=== PATIENT | male | born 1955 | race Caucasian/White ===

== ENCOUNTER → 2016-11-25 | Outpatient (CLI) | payer MEDICARE ==
[2016-11-25 11:55] LABS: ABSOLUTE BASOPHILS # (AUTO) 0.1 10^3/uL (0.0-0.2); ABSOLUTE EOSINOPHILS # (AUTO) 0.2 10^3/uL (0.0-0.6); ABSOLUTE LYMPHOCYTES (AUTO) 1.8 10^3/uL (0.5-4.7); ABSOLUTE MONOCYTES (AUTO) 0.6 10^3/uL (0.1-1.4); BASOPHILS % (AUTO) 0.9 % (0-2); HEMOGLOBIN 14.5 g/dL (13.5-17.0); HGB HCT DIFFERENCE 1.5; LYMPHOCYTES % (AUTO) 20.8 % (13-45); MEAN CORPUSCULAR HEMOGLOBIN 32.9 pg (27.0-33.4); MEAN CORPUSCULAR HGB CONC 34.5 g/dL (32.0-36.0); MEAN CORPUSCULAR VOLUME 96 fl (80-97); MONOCYTES % (AUTO) 7.1 % (3-13); RED CELL DISTRIBUTION WIDTH 12.9 % (11.5-14.0); SEGMENTED NEUTROPHILS % (AUTO) 69.2 % (42-78); WHITE BLOOD COUNT 8.7 10^3/uL (4.0-10.5)
[2016-11-25 12:10] LABS: ALANINE AMINOTRANSFERASE 37 U/L (21-72); ALBUMIN 4.1 g/dL (3.5-5.0); ALKALINE PHOSPHATASE 103 U/L (38-126); ANION GAP 11 (5-19); ASPARTATE AMINO TRANSFERASE 28 U/L (17-59); BILIRUBIN,DIRECT 0.3 mg/dL (0.0-0.4); BILIRUBIN,TOTAL 0.6 mg/dL (0.2-1.3); BLOOD UREA NITROGEN 41 mg/dL (7-20); C-REACTIVE PROTEIN 17.7 mg/L (<10.0); CALCIUM 9.5 mg/dL (8.4-10.2); CARBON DIOXIDE 32 mmol/L (22-30); CHLORIDE 98 mmol/L (98-107); CREATININE RESULT 1.16 mg/dL (0.52-1.25); GLUCOSE 111 mg/dL (75-110); POTASSIUM 4.6 mmol/L (3.6-5.0); SODIUM 141.3 mmol/L (137-145); TOTAL PROTEIN 6.9 g/dL (6.3-8.2)
[2016-11-25 12:38] LABS: ERYTHROCYTE SEDIMENTATION RATE 46 mm/hr (0-20)
--- NOTE | 2016-11-25 15:20 | RADIOLOGY REPORT (SQ) ---
EXAM DESCRIPTION: FOOT RIGHT COMPLETE COMPLETED DATE/TIME: 11/25/2016 11:17 am REASON FOR STUDY: NON PRESSURE ULCER RT FOOT FAT LAYER EXPOSED L97.512 NON-PRS CHRONIC ULCER OTH DC T RIGHT FOOT W FAT LAYER L97.519 NON-PRS CHRONIC ULCER OTH PRT RIGHT FOOT W UNSP STEVEN COMPARISON: None. NUMBER OF VIEWS: Three views. TECHNIQUE: AP, lateral and oblique radiographic images acquired of the right foot. LIMITATIONS: None. FINDINGS: MINERALIZATION: Normal. BONES: No fracture or dislocation dorsal and plantar calcaneal spurs are present. There is no eviden ce of osteomyelitis. JOINTS: No effusions. SOFT TISSUES: Very thin linear radiopaque foreign bodies are seen in the region of base of the 2nd me tatarsal hand in the region of the 3rd proximal phalanx. OTHER: No other significant finding. IMPRESSION: 1. Calcaneal spurs. 2. No evidence of osteomyelitis. 3. Radiopaque foreign bodies. TECHNICAL DOCUMENTATION: JOB ID: [id number] [employer]- All Rights Reserved
== END ==
LOC: OD 10:36
PROVIDERS: ATTEND Nurse Practitioner Family
DX: L97.512 Non-pressure chronic ulcer of other part of right foot with fat layer exposed (principal)
CPT/HCPCS: 36415; 80053; 83036; 85025; 85652; 86140

== ENCOUNTER 2017-01-05 08:19 | Day surgery (SDC) | payer MEDICARE ==
[~2017-01-05 08:19] MED LIST: PROPOFOL INJ 200 MG/20 ML VIAL IV ONE
[2017-01-05 10:22] VITALS: BP 100/61
--- NOTE | 2017-01-05 12:37 | Operative Report ---
Operative Report DATE OF SURGERY: 01/05/17 Operative Report: The risks, benefits and alternatives of the procedure including risks of bleeding, perforation requiring surgery are explained to the patient detail and informed consent was obtained. Patient was taken back to the endoscopy suite and placed in the left, lateral decubital position. Timeout was called. Propofol medications administered. A rectal examination is done which did not reveal any masses, tears or fissures. An Olympus videoscope is introduced into the patient's rectum. Following insufflation, the scope was then carefully advanced all the way to the cecum. The cecum was identified by the usual anatomical landmarks including the ileocecal valve as well as the appendiceal office. Photodocumentation is obtained. Prep is good. The scope was then sequentially pulled back via the rest segments of the colon including the ascending colon, hepatic flexure, transverse colon, splenic flexure, descending colon finally to the rectosigmoid portions of the colon. Retroflexion maneuvers performed. Prep is good. PREOPERATIVE DIAGNOSIS: Colorectal cancer screening POSTOPERATIVE DIAGNOSIS: Mild punctate erythema that is noted especially in the right side of the colon status post biopsy rule out colitis. Internal hemorrhoids OPERATION: Colonoscopy with biopsy SURGEON: LEOBARDO YOUNG ANESTHESIA: LMAC TISSUE REMOVED OR ALTERED: As noted above. COMPLICATIONS: None. ESTIMATED BLOOD LOSS: None. INTRAOPERATIVE FINDINGS: As described above. PROCEDURE: Patient tolerated the procedure well. No immediate postprocedure complications are noted. Patient discharged in good condition. Discharge date 01/05/2017. Discharge diet: Regular. Discharge activity: Regular. 2-3 week follow-up to discuss findings. Patient is instructed to call the office or proceed to the emergency room should there be any further problems or questions. We will await pathology. If negative can have 10 year colon surveillance.
== END 2017-01-05 10:10 | disposition home or self-care (01) ==
LOC: END 08:19
PROVIDERS: ATTEND Internal Medicine Gastroenterology
PROC: 0DBF8ZX Excision of Right Large Intestine, Via Natural or Artificial Opening Endoscopic, Diagnostic (ICD-10-PCS; principal; 2017-01-05 10:30)
DX: Z12.11 Encounter for screening for malignant neoplasm of colon (principal); K52.9 Noninfective gastroenteritis and colitis, unspecified; K64.8 Other hemorrhoids; G62.9 Polyneuropathy, unspecified; I48.91 Unspecified atrial fibrillation; I11.0 Hypertensive heart disease with heart failure; I50.9 Heart failure, unspecified; E11.9 Type 2 diabetes mellitus without complications; Z79.899 Other long term (current) drug therapy; Z79.01 Long term (current) use of anticoagulants; Z98.84 Bariatric surgery status; L97.509 Non-pressure chronic ulcer of other part of unspecified foot with unspecified severity; Z86.14 Personal history of Methicillin resistant Staphylococcus aureus infection
CPT/HCPCS: 45380; 82962; 88305 ×2; J2704; 810

== ENCOUNTER 2017-03-02 18:32 | Emergency (ER) | payer MEDICARE ==
[2017-03-02 18:49] VITALS: BP 118/75
[2017-03-02] MEDS ORDERED: ACETAMINOPHEN 325 MG TABLET PO ONE (20:15)
[2017-03-02] MEDS ORDERED: BUPIVACAINE HCL 0.5 % INJ/PF 30 ML SDV INJ ONE (20:16)
--- NOTE | 2017-03-02 20:17 | ER Document Report ---
HPI - HPI Patient complains to provider of: Finger laceration Onset: Just prior to arrival Onset/Duration: Sudden Quality of pain: Sharp Pain Level: 3 Context: Patient was using pruning court and accidentally snipped the tip of his right fifth finger. Patient with laceration to fingertip. Patient reports that tetanus immunization is currently up-to-date Associated Symptoms: Other - Finger laceration Exacerbated by: Movement Relieved by: Denies Similar symptoms previously: No Recently seen / treated by doctor: No - ROS ROS below otherwise negative: Yes Systems Reviewed and Negative: Yes All other systems reviewed and negative - MUSCULOSKELETAL Musculoskeletal: REPORTS: Extremity pain - DERM Skin Problems: Laceration Past Medical History - General Information source: Patient - Social History Smoking Status: Never Smoker Frequency of alcohol use: None Drug Abuse: None Family History: Reviewed & Not Pertinent Patient has suicidal ideation: No Patient has homicidal ideation: No - Past Medical History Cardiac Medical History: Reports: Hx Atrial Fibrillation, Hx Congestive Heart Failure, Hx Hypercholesterolemia, Hx Hypertension Denies: Hx Coronary Artery Disease, Hx Heart Attack Pulmonary Medical History: Denies: Hx Asthma, Hx Bronchitis, Hx COPD, Hx Pneumonia Neurological Medical History: Denies: Hx Cerebrovascular Accident, Hx Seizures Endocrine Medical History: Reports: Hx Diabetes Mellitus Type 2 Renal/ Medical History: Denies: Hx Peritoneal Dialysis Musculoskeltal Medical History: Reports Hx Arthritis Past Surgical History: Reports: Hx Appendectomy, Hx Cholecystectomy, Hx Tonsillectomy - Immunizations Hx Diphtheria, Pertussis, Tetanus Vaccination: Yes Vertical Provider Document - CONSTITUTIONAL Agree With Documented VS: Yes Exam Limitations: No Limitations General Appearance: WD/WN, No Apparent Distress - INFECTION CONTROL TRAVEL OUTSIDE OF THE [place] IN LAST 30 DAYS: No - HEENT HEENT: Atraumatic, Normocephalic - NECK Neck: Normal Inspection - RESPIRATORY Respiratory: No Respiratory Distress O2 Sat by Pulse Oximetry: 96 - CARDIOVASCULAR Pulses: Normal: Radial - MUSCULOSKELETAL/EXTREMETIES Musculoskeletal/Extremeties: MAEW, Tender - Right fifth finger laceration to the distal tip, No Edema - NEURO Level of Consciousness: Awake, Alert, Appropriate Motor/Sensory: No Motor Deficit - DERM Integumentary: Warm, Dry, Laceration - Right fifth finger laceration to distal tip Course - Vital Signs Vital signs: Temp Pulse Resp BP Pulse Ox 98.6 F 80 16 118/75 96 03/02/17 18:49 03/02/17 18:49 03/02/17 18:49 03/02/17 18:49 03/02/17 18:49 - Diagnostic Test Radiology reviewed: Pending, Image reviewed Procedures - Laceration/Wound Repair Right 5th digit Wound length (cm): 2 Wound's Depth, Shape: Flap Anesthetic type: 0.5% Bupivacaine Wound explored: No foreign body removed Wound Repaired With: Sutures Suture Size/Type: 5:0, Nylon Number of Sutures: 6 Layer Closure?: No Post-procedure wound care: Sterile dressing applied Post-procedure NV exam normal: Yes Complications: No Hands front picture: 1 - 2 cm lac Discharge - Discharge Clinical Impression: Finger laceration Qualifiers: Encounter type: initial encounter Finger: little finger Damage to nail status: without damage Foreign body presence: without foreign body Laterality: right Qualified Code(s): S61.216A - Laceration without foreign body of right little finger without damage to nail, initial encounter Condition: Stable Disposition: HOME, SELF-CARE Instructions: Laceration Care ([facility]), Prophylactic Antibiotic ([facility]), Oral Narcotic Medication ([facility]) Additional Instructions: Return immediately for any new or worsening symptoms Followup with your primary care provider, call tomorrow to make a followup appointment Suture removal in 8 days Prescriptions: Cephalexin Monohydrate [Keflex 500 mg Capsule] 500 mg PO Q6H 5 Days capsule Hydrocodone/Acetaminophen [[place] 5-325 Tablet] 1 each PO Q4 PRN #8 tablet PRN Reason:
[2017-03-02] MEDS ORDERED: CEPHALEXIN 500 MG CAPSULE PO ONE (21:15)
[2017-03-02] MEDS ORDERED: HYDROCODONE/ACETAMINOPHEN 5-325 MG 6 TAB/DSPK PO PRN (21:15)
--- NOTE | 2017-03-02 21:19 | RADIOLOGY REPORT (SQ) ---
EXAM DESCRIPTION: FINGER RIGHT COMPLETED DATE/TIME: 03/02/2017 8:41 pm REASON FOR STUDY: finger lac COMPARISON: None. NUMBER OF VIEWS: Three views. TECHNIQUE: AP, lateral, and oblique images acquired of the right fifth finger. LIMITATIONS: None. FINDINGS: MINERALIZATION: Normal. BONES: No acute fracture or dislocation. No worrisome bone lesions. SOFT TISSUES: No radiopaque foreign body is identified. There is apparent soft tissue injury involvi ng the distal end of the 5th digit. OTHER: No other significant finding. IMPRESSION: No acute fracture dislocation. There is apparent soft tissue injury involving the dista l end of the 5th digit. Other findings as noted above COMMENT: SITE OF TRAUMA/COMPLAINT MARKED/STAMP COMPLETED: Yes TECHNICAL DOCUMENTATION: JOB ID: [id number] [employer]- All Rights Reserved
== END 2017-03-02 21:40 | disposition home or self-care (01) ==
LOC: ER 18:32
PROC: 0HQFXZZ Repair Right Hand Skin, External Approach (ICD-10-PCS; principal; 2017-03-02)
DX: S61.212A Laceration without foreign body of right middle finger without damage to nail, initial encounter (principal); W27.1XXA Contact with garden tool, initial encounter; I48.91 Unspecified atrial fibrillation; I50.9 Heart failure, unspecified; E78.00 Pure hypercholesterolemia, unspecified; I11.0 Hypertensive heart disease with heart failure; E11.9 Type 2 diabetes mellitus without complications; Z90.49 Acquired absence of other specified parts of digestive tract
CPT/HCPCS: 99283; 73140; 12001; A9270 ×3

== ENCOUNTER → 2017-05-04 | Outpatient (CLI) | payer MEDICARE ==
--- NOTE | 2017-05-04 12:25 | RADIOLOGY REPORT (SQ) ---
EXAM DESCRIPTION: U/S ABD AORTIC SCREENING COMPLETED DATE/TIME: 05/04/2017 9:57 am REASON FOR STUDY: SCRN FOR CARDIOVASCULAR DISORDERS(Z13.6 PROMINENT ABD AORTIC PULSE (R09.89) R09.89 OTH SYMPTOMS AND SIGNS INVOLVING THE CIRC AND RESP SY Z13.6 ENCOUNTER FOR SCREENING FOR CARDIOVASC ULAR DISORDERS COMPARISON: None. TECHNIQUE: Static and dynamic grayscale images acquired of the aorta and stored on PACs. Selected co steve Doppler and spectral images recorded. LIMITATIONS: None. FINDINGS: AORTIC CALIBER MAXIMAL PROXIMAL: 1.9 cm. MID: 1.7 cm. DISTAL: 1.9 cm. ILIAC DIAMETER RIGHT: 2.2 cm. LEFT: 1.6 cm. OTHER: No other significant finding. IMPRESSION: NO ABDOMINAL AORTIC ANEURYSM. COMMENT: Aorta screening examinations categories: Negative - less than 3 cm. TECHNICAL DOCUMENTATION: JOB ID: [id number] [employer]- All Rights Reserved
== END ==
LOC: RAD 08:51
PROVIDERS: ATTEND Family Medicine
DX: Z13.6 Encounter for screening for cardiovascular disorders (principal); Z87.891 Personal history of nicotine dependence
CPT/HCPCS: 76706

== ENCOUNTER 2017-08-03 14:31 | Emergency (ER) | payer MEDICARE ==
[2017-08-03] MEDS ORDERED: NORMAL SALINE 1000 ML 1,000 ML IV ONE (15:54)
--- NOTE | 2017-08-03 16:02 | ER Document Report ---
ED Medical Screen (RME) - General Chief Complaint: Foot Pain Stated Complaint: FOOT PAIN Time Seen by Provider: 08/03/17 15:46 Notes: RAPID MEDICAL EVALUATION DISCLOSURE I have seen this patient as part of a Rapid Medical Evaluation and, if applicable, placed any initially appropriate orders. The patient will be seen and fully evaluated, including a full history and physical exam, by a provider ( in Main ED or Fast Track) when a room becomes available. 61-year-old male here with complaints of possible right foot infection. He states that he has a diabetic ulcer to the distal part of his foot and that over the past week, he has had increased redness as well as yellow drainage. He has seen his surgeon about this and patient reports "this [place] does not believe in antibiotics" so the patient has been using a cream on the area but he does not know the name of the cream. No fevers but he has been having chills. Patient reports his baseline blood pressure is in the 110s-130s and that it is not usually this low (94 systolic) unless he is feeling bad. TRAVEL OUTSIDE OF THE [place] IN LAST 30 DAYS: No - Related Data Allergies/Adverse Reactions: No Known Allergies Allergy (Verified 03/02/17 18:33) Home Medications: multivitamin. docusat sodium. bumetanide. zarelto. gabapentin. fish oi. lininopril. amiodarone. liothyronine. omeprazole. alprazolam. carvedilol Past Medical History - Social History Frequency of alcohol use: None Drug Abuse: None - Past Medical History Cardiac Medical History: Reports: Hx Atrial Fibrillation, Hx Congestive Heart Failure, Hx Hypercholesterolemia, Hx Hypertension Denies: Hx Coronary Artery Disease, Hx Heart Attack Pulmonary Medical History: Denies: Hx Asthma, Hx Bronchitis, Hx COPD, Hx Pneumonia Neurological Medical History: Denies: Hx Cerebrovascular Accident, Hx Seizures Endocrine Medical History: Reports: Hx Diabetes Mellitus Type 2 Renal/ Medical History: Denies: Hx Peritoneal Dialysis Musculoskeltal Medical History: Reports Hx Arthritis Past Surgical History: Reports: Hx Appendectomy, Hx Cholecystectomy, Hx Tonsillectomy - Immunizations Hx Diphtheria, Pertussis, Tetanus Vaccination: Yes Physical Exam - Vital signs Vitals: Temp Pulse Resp BP Pulse Ox 98.5 F 67 18 94/65 L 94 08/03/17 14:47 08/03/17 14:47 08/03/17 14:47 08/03/17 14:47 08/03/17 14:47 Course - Vital Signs Vital signs: Temp Pulse Resp BP Pulse Ox 98.5 F 67 18 94/65 L 94 08/03/17 14:47 08/03/17 14:47 08/03/17 14:47 08/03/17 14:47 08/03/17 14:47 Doctor's Discharge - Discharge Referrals: GABRIELLE CAMARA MD [Primary Care Provider] - Follow up as needed
[2017-08-03 16:25] LABS: ABSOLUTE BASOPHILS # (AUTO) 0.1 10^3/uL (0.0-0.2); ABSOLUTE EOSINOPHILS # (AUTO) 0.1 10^3/uL (0.0-0.6); ABSOLUTE LYMPHOCYTES (AUTO) 1.8 10^3/uL (0.5-4.7); ABSOLUTE MONOCYTES (AUTO) 0.6 10^3/uL (0.1-1.4); ABSOLUTE NEUT (AUTO) 6.4 10^3/uL (1.7-8.2); BASOPHILS % (AUTO) 0.8 % (0-2); EOSINOPHILS % (AUTO) 1.2 % (0-6); HEMATOCRIT 39.3 % (37.9-51.0); HEMOGLOBIN 13.6 g/dL (13.5-17.0); LYMPHOCYTES % (AUTO) 19.8 % (13-45); MEAN CORPUSCULAR HEMOGLOBIN 32.9 pg (27.0-33.4); MEAN CORPUSCULAR HGB CONC 34.6 g/dL (32.0-36.0); MEAN CORPUSCULAR VOLUME 95 fl (80-97); MONOCYTES % (AUTO) 6.9 % (3-13); PLATELET COUNT 297 10^3/uL (150-450); RED BLOOD COUNT 4.13 10^6/uL (4.35-5.55); RED CELL DISTRIBUTION WIDTH 12.7 % (11.5-14.0); SEGMENTED NEUTROPHILS % (AUTO) 71.3 % (42-78); TOTAL CELLS COUNTED % (AUTO) 100 %
[2017-08-03 16:40] LABS: ANION GAP 13 (5-19); BLOOD UREA NITROGEN 32 mg/dL (7-20); CALCIUM 9.4 mg/dL (8.4-10.2); CARBON DIOXIDE 32 mmol/L (22-30); CHLORIDE 98 mmol/L (98-107); GLUCOSE 87 mg/dL (75-110); POTASSIUM 4.1 mmol/L (3.6-5.0); SODIUM 143.3 mmol/L (137-145)
--- NOTE | 2017-08-03 16:44 | RADIOLOGY REPORT (SQ) ---
EXAM DESCRIPTION: FOOT RIGHT 2 VIEWS COMPLETED DATE/TIME: 08/03/2017 4:33 pm REASON FOR STUDY: R toe ulcer; eval gas or osteomyelitis COMPARISON: 11/25/2016 NUMBER OF VIEWS: Three views. TECHNIQUE: AP, lateral and oblique radiographic images acquired of the right foot. LIMITATIONS: None. FINDINGS: Unchanged linear foreign bodies level of 3rd phalanx and base of 1st metatarsal. Skin ulc er plantar aspect 1st metatarsophalangeal joint. No deep subcutaneous gas. There is demineralizatio n of the base of the proximal 1st phalanx with sharp margins, presumably from previous osteotomy. IMPRESSION: Postsurgical changes base of proximal 1st phalanx. Chronic metal linear foreign bodies. TECHNICAL DOCUMENTATION: JOB ID: [id number] [employer]- All Rights Reserved Reading location - IP/workstation name: [email or web address]
[2017-08-03 17:00] LABS: ERYTHROCYTE SEDIMENTATION RATE 49 mm/hr (0-20)
[2017-08-03] MEDS ORDERED: CLINDAMYCIN 900 MG/D5W RTU 50 ML IV ONE (17:10)
[2017-08-03] MEDS ORDERED: FENTANYL CITRATE INJ/PF 100 MCG/2 ML AMPUL IV ONE (18:10)
--- NOTE | 2017-08-03 19:44 | ER Document Report ---
ED General - General Chief Complaint: Foot Pain Stated Complaint: FOOT PAIN Time Seen by Provider: 08/03/17 15:46 Information source: Patient Notes: 61-year-old male with a history of diabetes, atrial fibrillation presents with complaint of right great toe pain that has been ongoing since surgery 2 weeks prior to arrival. Patient states that he underwent "bone removal surgery" with Dr. Fay. Patient is concerned with increasing pain, erythema and drainage from the wound. He states that he did follow up with the surgeon who states that the area looked well and did not recommend antibiotics at that time. Patient denies fever, chills, chest pain, shortness of breath. He does undergo care with the wound center and has an appointment tomorrow. She denies history of osteomyelitis, MRSA. TRAVEL OUTSIDE OF THE [place] IN LAST 30 DAYS: No - HPI Onset: Other Onset/Duration: Gradual, Constant Quality of pain: Burning, Throbbing Severity: Moderate Associated symptoms: denies: Chest pain, Fever, Leg swelling, Shortness of breath Exacerbated by: Movement, Walking Relieved by: Denies Similar symptoms previously: Yes Recently seen / treated by doctor: Yes - Related Data Allergies/Adverse Reactions: No Known Allergies Allergy (Verified 03/02/17 18:33) Home Medications: multivitamin. docusat sodium. bumetanide. zarelto. gabapentin. fish oi. lininopril. amiodarone. liothyronine. omeprazole. alprazolam. carvedilol Past Medical History - General Information source: Patient - Social History Smoking Status: Never Smoker Frequency of alcohol use: None Drug Abuse: None Lives with: Alone Family History: Reviewed & Not Pertinent Patient has suicidal ideation: No Patient has homicidal ideation: No - Past Medical History Cardiac Medical History: Reports: Hx Atrial Fibrillation, Hx Congestive Heart Failure, Hx Hypercholesterolemia, Hx Hypertension Denies: Hx Coronary Artery Disease, Hx Heart Attack Pulmonary Medical History: Denies: Hx Asthma, Hx Bronchitis, Hx COPD, Hx Pneumonia Neurological Medical History: Denies: Hx Cerebrovascular Accident, Hx Seizures Endocrine Medical History: Reports: Hx Diabetes Mellitus Type 2 Renal/ Medical History: Denies: Hx Peritoneal Dialysis Musculoskeltal Medical History: Reports Hx Arthritis Past Surgical History: Reports: Hx Abdominal Surgery - gastric sleeve, Hx Appendectomy, Hx Cholecystectomy, Hx Orthopedic Surgery - right toe surgery, Hx Tonsillectomy - Immunizations Hx Diphtheria, Pertussis, Tetanus Vaccination: Yes Review of Systems - Review of Systems Notes: Patient denies fever, chills, nausea, vomiting, headache, ear pain, sore throat , cough, chest pain, shortness of breath, abdominal pain, back pain, dysuria, hematuria, rash, SI/HI. Physical Exam - Vital signs Vitals: Temp Pulse Resp BP Pulse Ox 98.5 F 67 18 94/65 L 94 08/03/17 14:47 08/03/17 14:47 08/03/17 14:47 08/03/17 14:47 08/03/17 14:47 - Notes Notes: PHYSICAL EXAMINATION: GENERAL: Well-appearing, well-nourished and in no acute distress. HEAD: Atraumatic, normocephalic. EYES: Pupils equal round and reactive to light, extraocular movements intact, sclera anicteric, conjunctiva are normal. ENT: Nares patent, oropharynx clear without exudates. Moist mucous membranes. NECK: Normal range of motion, supple without lymphadenopathy LUNGS: Breath sounds clear to auscultation bilaterally and equal. No wheezes rales or rhonchi. HEART: Regular rate and rhythm without murmurs ABDOMEN: Soft, nontender, nondistended abdomen. No guarding, no rebound. No masses appreciated. Musculoskeletal: Right great toe erythematous, nickel-sized ulceration on the dorsal aspect with good granulation tissue, no purulent drainage or foul odor. Left great toe absent. NEUROLOGICAL: Cranial nerves grossly intact. Normal speech, normal gait. Normal sensory, motor exams PSYCH: Normal mood, normal affect. SKIN: Warm, Dry, normal turgor, no rashes or lesions noted. Course - Re-evaluation Re-evalutation: Laboratory 08/03/17 08/03/17 16:02 16:02 WBC 9.0 RBC 4.13 L Hgb 13.6 Hct 39.3 MCV 95 MCH 32.9 MCHC 34.6 RDW 12.7 Plt Count 297 Seg Neutrophils % 71.3 Lymphocytes % 19.8 Monocytes % 6.9 Eosinophils % 1.2 Basophils % 0.8 Absolute Neutrophils 6.4 Absolute Lymphocytes 1.8 Absolute Monocytes 0.6 Absolute Eosinophils 0.1 Absolute Basophils 0.1 ESR 49 H Sodium 143.3 Potassium 4.1 Chloride 98 Carbon Dioxide 32 H Anion Gap 13 BUN 32 H Creatinine 1.31 H Est GFR ( Amer) > 60 Est GFR (Non-Af Amer) 56 L Glucose 87 Calcium 9.4 08/04/17 00:02 61-year-old male with a history of diabetes present 2 weeks status post right 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 Patient reports worsening of pain over the last few days. He is concerned because the toe appears more red. Upon arrival vitals were reviewed. Patient is afebrile, mildly hypotensive which he reports is his baseline. Exam is significant for erythema of the toe without extension into the foot or leg. Patient does have a nickel-sized ulceration on the dorsal aspect of his right great toe that has granulation tissue, no purulent drainage or foul odor. Tray was obtained and showed no evidence of osteomyelitis. CBC is without leukocytosis, CMP does show an elevated BUN/creatinine which appears to be the patient's baseline. Patient also with a elevated ESR which also appears to be his baseline. He did receive fluids for this. Patient also received clindamycin and morphine. On reevaluation patient pain has improved. He does have an upcoming appointment with wound care tomorrow. Patient was discharged home with prescription for clindamycin. Patient provided the opportunity to ask questions, and express concerns. Discharge instructions discussed. Patient is agreeable with discharge home. Return indications explained and discussed with the patient who displays understanding. Patient encouraged to return to the emergency department immediately with any concerns. - Vital Signs Vital signs: Temp Pulse Resp BP Pulse Ox 98.5 F 67 15 106/60 94 08/03/17 20:01 08/03/17 14:47 08/03/17 20:01 08/03/17 20:01 08/03/17 20:01 - Laboratory Result Diagrams: 08/03/17 16:02 08/03/17 16:02 Laboratory results interpreted by me: 08/03/17 08/03/17 16:02 16:02 RBC 4.13 L ESR 49 H Carbon Dioxide 32 H BUN 32 H Creatinine 1.31 H Est GFR (Non-Af Amer) 56 L - Diagnostic Test Radiology reviewed: Image reviewed, Reports reviewed Discharge - Discharge Clinical Impression: Pain of right great toe Condition: Good Disposition: HOME, SELF-CARE Instructions: Wound Infection ([facility]) Additional Instructions: Please follow-up with the wound care clinic as already scheduled tomorrow. Please follow-up with the podiatric surgeon as scheduled. Follow up with your physician tomorrow for further care or return to the ED IMMEDIATELY if symptoms worsen or new concerns occur. If you cannot afford to follow up with your primary care physician a list of low cost clinics have been provided at the end of your discharge papers as well. Prescriptions: Clindamycin HCl 600 mg PO Q6H 10 Days #80 capsule Hydrocodone/Acetaminophen [[place] 5-325 mg Tablet] 1 tab PO Q6H #10 tablet Referrals: GABRIELLE CAMARA MD [Primary Care Provider] - Follow up as needed MEG MORALES DPM [NO LOCAL MD] - Follow up as needed
[2017-08-03 20:09] VITALS: BP 106/60
== END 2017-08-03 20:25 | disposition home or self-care (01) ==
LOC: ER 14:31
DX: M79.674 Pain in right toe(s) (principal); E11.9 Type 2 diabetes mellitus without complications; I10 Essential (primary) hypertension; I48.91 Unspecified atrial fibrillation; Z79.01 Long term (current) use of anticoagulants; Z98.890 Other specified postprocedural states; Z79.899 Other long term (current) drug therapy
CPT/HCPCS: 99283; 96361; 96375; 96365; 36415; 87040; 85025; 85652; 80048; 73620; J3010; J7030

== ENCOUNTER → 2017-08-25 | Outpatient (CLI) | payer MEDICARE ==
--- NOTE | 2017-08-25 13:03 | XCELERA REPORT ---
[address] [address] Lower Extremity Arterial Evaluation Name: VITALY HENNESSY Age: 61 yrs Gender: Male : 1955 Patient Status: Outpatient Patient Location: Study Date: 08/25/2017 10:08 AM Procedure: A color flow and duplex scan of the lower extremity arteries was performed bilaterally with velocity and waveform anaylsis. Ankle brachial indicies performed. 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 0 % stenosis . Ankle Brachial index is 1.2. Left Side Arterial Evaluation Normal velocity and triphasic waveforms noted from the Common Femoral artery to the infrageniculate vessels. 0 % stenosis . Ankle Brachial index is 1.6. Interpretation Summary No hemodynamically significant lesions in the bilateral lower extremities, on duplex imaging, at rest. : SAMIR MICHAEL > Gerardo Leong
== END ==
LOC: SP 09:54
PROVIDERS: ATTEND Preventive Medicine Undersea and Hyperbaric Medicine
DX: M79.605 Pain in left leg (principal)
CPT/HCPCS: 93922; 93925

== ENCOUNTER → 2017-09-17 | Outpatient (CLI) | payer MEDICARE ==
--- NOTE | 2017-09-17 12:03 | RADIOLOGY REPORT (SQ) ---
EXAM DESCRIPTION: FOOT RIGHT COMPLETE COMPLETED DATE/TIME: 09/17/2017 11:51 am REASON FOR STUDY: NON-PRS CHRONIC ULCER OTH PRT RIGHT FOOT W NECROSIS OF BONE L97.514 NON-PRS CHRON IC ULCER OTH PRT RIGHT FOOT W NECROSIS COMPARISON: Right foot films 11/25/2016, 08/03/2017 NUMBER OF VIEWS: Three views. TECHNIQUE: AP, lateral and oblique radiographic images acquired of the right foot. LIMITATIONS: None. FINDINGS: MINERALIZATION: Overall normal bone density BONES: Patient is post osteotomy at the base of the right great toe proximal phalanx. There is perio steal new bone along the base of the great toe proximal phalanx. No aggressive bony demineralization of the great toe 1st metatarsal head. JOINTS: No significant joint space widening at the 1st metatarsophalangeal joint SOFT TISSUES: There is diffuse forefoot soft tissue swelling around the 1st metatarsophalangeal joint . Radiopaque linear foreign bodies are seen in the plantar soft tissues, question selling needles along the base 2nd metatarsal and 3rd toe proximal phalanx regions. These are unchanged. OTHER: No other significant finding. IMPRESSION: Soft tissue swelling at the 1st metatarsophalangeal joint region. Periosteal new bone at the base of the great toe proximal phalanx from healing osteotomy. Metallic foreign bodies in the plantar soft tissues likely fragments of sewing needles TECHNICAL DOCUMENTATION: JOB ID: [id number] [employer]- All Rights Reserved Reading location - IP/workstation name: [email or web address]
== END ==
LOC: RAD 11:32
PROVIDERS: ATTEND Preventive Medicine Undersea and Hyperbaric Medicine
DX: E11.621 Type 2 diabetes mellitus with foot ulcer (principal); L97.514 Non-pressure chronic ulcer of other part of right foot with necrosis of bone

== ENCOUNTER → 2017-10-15 | Outpatient (CLI) | payer MEDICARE ==
--- NOTE | 2017-10-15 10:44 | RADIOLOGY REPORT (SQ) ---
EXAM DESCRIPTION: FOOT RIGHT COMPLETE COMPLETED DATE/TIME: 10/15/2017 10:12 am REASON FOR STUDY: NON-PRS CHRONIC ULCER OTH PRT RIGHT FOOT W NECROSIS OF BONE L97.514 NON-PRS CHRON IC ULCER OTH PRT RIGHT FOOT W NECROSIS COMPARISON: 11/25/2016, 08/03/2017, 09/17/2017 right foot films NUMBER OF VIEWS: Three views. TECHNIQUE: AP, lateral and oblique radiographic images acquired of the right foot. LIMITATIONS: None. FINDINGS: Small soft tissue ulcer over the dorsal medial aspect of the right foot at the 1st metatar sophalangeal joint. This is visualized because of radiopaque ointment. Since the osteotomy at the base great toe proximal phalanx, the patient has developed periosteal new bone at the base of the great toe proximal phalanx. This is similar compared to films in August of s year. This is likely benign postoperative bony change. No aggressive bony erosions at the 1st met atarsal head to suggest septic arthritis at this time. Old sewing needle fragments are seen in the plantar soft tissues near the 1st and 2nd tarsometatarsal articulations, and along the right 3rd toe proximal phalanx. IMPRESSION: Soft tissue ulcer at the dorsal and medial right 1st metatarsophalangeal joint. Probably benign periosteal new bone at the base of the right great toe proximal phalanx, similar comp ared to films from 09/17/2017. TECHNICAL DOCUMENTATION: JOB ID: [id number] [employer]- All Rights Reserved Reading location - IP/workstation name: [email or web address]
== END ==
LOC: RAD 09:55 → EDBD 09:55
PROVIDERS: ATTEND Preventive Medicine Undersea and Hyperbaric Medicine
DX: L97.514 Non-pressure chronic ulcer of other part of right foot with necrosis of bone (principal)

== ENCOUNTER → 2017-10-22 | Outpatient (CLI) | payer MEDICARE ==
[2017-10-22 10:57] LABS: ABSOLUTE BASOPHILS # (AUTO) 0.1 10^3/uL (0.0-0.2); ABSOLUTE EOSINOPHILS # (AUTO) 0.2 10^3/uL (0.0-0.6); ABSOLUTE LYMPHOCYTES (AUTO) 1.8 10^3/uL (0.5-4.7); ABSOLUTE MONOCYTES (AUTO) 0.5 10^3/uL (0.1-1.4); BASOPHILS % (AUTO) 1.1 % (0-2); EOSINOPHILS % (AUTO) 2.7 % (0-6); HEMATOCRIT 41.9 % (37.9-51.0); HEMOGLOBIN 14.5 g/dL (13.5-17.0); LYMPHOCYTES % (AUTO) 23.9 % (13-45); MEAN CORPUSCULAR HEMOGLOBIN 31.9 pg (27.0-33.4); MEAN CORPUSCULAR HGB CONC 34.6 g/dL (32.0-36.0); MEAN CORPUSCULAR VOLUME 92 fl (80-97); MONOCYTES % (AUTO) 7.2 % (3-13); PLATELET COUNT 277 10^3/uL (150-450); RED BLOOD COUNT 4.55 10^6/uL (4.35-5.55); RED CELL DISTRIBUTION WIDTH 12.8 % (11.5-14.0); SEGMENTED NEUTROPHILS % (AUTO) 65.1 % (42-78); TOTAL CELLS COUNTED % (AUTO) 100 %; WHITE BLOOD COUNT 7.6 10^3/uL (4.0-10.5)
[2017-10-22 11:28] LABS: ALANINE AMINOTRANSFERASE 33 U/L (21-72); ALBUMIN 4.4 g/dL (3.5-5.0); ALKALINE PHOSPHATASE 97 U/L (38-126); ANION GAP 12 (5-19); ASPARTATE AMINO TRANSFERASE 26 U/L (17-59); BILIRUBIN,DIRECT 0.2 mg/dL (0.0-0.4); BILIRUBIN,TOTAL 0.6 mg/dL (0.2-1.3); BLOOD UREA NITROGEN 59 mg/dL (7-20); C-REACTIVE PROTEIN 7.9 mg/L (<10.0); CALCIUM 9.7 mg/dL (8.4-10.2); CARBON DIOXIDE 32 mmol/L (22-30); CHLORIDE 98 mmol/L (98-107); GLUCOSE 150 mg/dL (75-110); SODIUM 142.2 mmol/L (137-145); TOTAL PROTEIN 7.5 g/dL (6.3-8.2)
[2017-10-22 11:33] LABS: ERYTHROCYTE SEDIMENTATION RATE 42 mm/hr (0-20)
== END ==
LOC: LAB 10:21
PROVIDERS: ATTEND Preventive Medicine Undersea and Hyperbaric Medicine
DX: E11.621 Type 2 diabetes mellitus with foot ulcer (principal); L97.514 Non-pressure chronic ulcer of other part of right foot with necrosis of bone
CPT/HCPCS: 36415; 80053; 83036; 85025; 85652; 86140

== ENCOUNTER → 2017-11-05 | Outpatient (CLI) | payer MEDICARE ==
--- NOTE | 2017-11-05 11:04 | RADIOLOGY REPORT (SQ) ---
EXAM DESCRIPTION: CHEST 2 VIEWS COMPLETED DATE/TIME: 11/05/2017 10:33 am REASON FOR STUDY: PNEUMOTHORAX COMPARISON: AP chest 11/14/2012, 11/11/2012 EXAM PARAMETERS: NUMBER OF VIEWS: two views TECHNIQUE: Digital Frontal and Lateral radiographic views of the chest acquired. RADIATION DOSE: NA LIMITATIONS: none FINDINGS: LUNGS AND PLEURA: No opacities, masses or pneumothorax. No pleural effusion. MEDIASTINUM AND HILAR STRUCTURES: No masses or contour abnormalities. HEART AND VASCULAR STRUCTURES: Heart normal size. No evidence for failure. BONES: No acute findings. HARDWARE: Left-sided dual lead pacemaker. OTHER: No other significant finding. IMPRESSION: Left-sided pacemaker in good positioning. No pneumothorax or acute pulmonary infiltrates. TECHNICAL DOCUMENTATION: JOB ID: [id number] [employer]- All Rights Reserved Reading location - IP/workstation name: [email or web address]
== END ==
LOC: RAD 10:18
PROVIDERS: ATTEND Preventive Medicine Undersea and Hyperbaric Medicine
DX: J93.9 Pneumothorax, unspecified (principal)
CPT/HCPCS: 71046

== ENCOUNTER → 2017-11-12 | Outpatient (CLI) | payer MEDICARE ==
--- NOTE | 2017-11-12 17:49 | RADIOLOGY REPORT (SQ) ---
EXAM DESCRIPTION: FOOT RIGHT COMPLETE COMPLETED DATE/TIME: 11/12/2017 5:29 pm REASON FOR STUDY: L97.514 NON-PRS CHRONIC ULCER OTH PRT RIGHT FOOT W NECROSIS OF BONE ELL.621 L97.51 4 NON-PRS CHRONIC ULCER OTH PRT RIGHT FOOT W NECROSIS E11.621 TYPE 2 DIABETES MELLITUS WITH FOOT U LCER COMPARISON: 09/17/2017 NUMBER OF VIEWS: Three views. TECHNIQUE: AP, lateral and oblique radiographic images acquired of the right foot. LIMITATIONS: None. FINDINGS: MINERALIZATION: Normal. BONES: There is no evidence of osteomyelitis. JOINTS: Degenerative joint changes are present in the 1st metatarsal-phalangeal joint. SOFT TISSUES: Linear radiopaque foreign bodies are seen in the 3rd digit and at the base of the 1st a nd 2nd metatarsals. OTHER: No other significant finding. IMPRESSION: No evidence of osteomyelitis. Stable foreign bodies. Degenerative joint disease. TECHNICAL DOCUMENTATION: JOB ID: [id number] [employer]- All Rights Reserved Reading location - IP/workstation name: [email or web address]
== END ==
LOC: RAD 17:00
PROVIDERS: ATTEND Preventive Medicine Undersea and Hyperbaric Medicine
DX: E11.621 Type 2 diabetes mellitus with foot ulcer (principal); L97.514 Non-pressure chronic ulcer of other part of right foot with necrosis of bone

== ENCOUNTER 2017-12-01 12:31 | Emergency (ER) | payer MEDICARE ==
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
[2017-12-01] MEDS ORDERED: PIPERACILLIN/TAZOBACTAM 3.375 GM VIAL IV ONE ×2 (14:20→18:00)
[2017-12-01] MEDS ORDERED: VANCOMYCIN HCL INJ 1000 MG VIAL IV ONE ×2 (14:20→18:00)
[2017-12-01] MEDS ORDERED: RINGERS SOLUTION,LACTATED 1,000 ML IV ONE (14:20)
[2017-12-01 15:12] LABS: ABSOLUTE BASOPHILS # (AUTO) 0.1 10^3/uL (0.0-0.2); ABSOLUTE EOSINOPHILS # (AUTO) 0.1 10^3/uL (0.0-0.6); ABSOLUTE LYMPHOCYTES (AUTO) 1.7 10^3/uL (0.5-4.7); ABSOLUTE MONOCYTES (AUTO) 0.5 10^3/uL (0.1-1.4); ABSOLUTE NEUT (AUTO) 5.2 10^3/uL (1.7-8.2); EOSINOPHILS % (AUTO) 1.3 % (0-6); HEMATOCRIT 37.8 % (37.9-51.0); HEMOGLOBIN 12.9 g/dL (13.5-17.0); LYMPHOCYTES % (AUTO) 22.5 % (13-45); MEAN CORPUSCULAR HEMOGLOBIN 32.3 pg (27.0-33.4); MEAN CORPUSCULAR HGB CONC 34.1 g/dL (32.0-36.0); MEAN CORPUSCULAR VOLUME 95 fl (80-97); MONOCYTES % (AUTO) 6.8 % (3-13); PLATELET COUNT 345 10^3/uL (150-450); RED BLOOD COUNT 3.99 10^6/uL (4.35-5.55); RED CELL DISTRIBUTION WIDTH 13.4 % (11.5-14.0); SEGMENTED NEUTROPHILS % (AUTO) 68.4 % (42-78); TOTAL CELLS COUNTED % (AUTO) 100 %; WHITE BLOOD COUNT 7.7 10^3/uL (4.0-10.5)
[2017-12-01 15:31] LABS: ALANINE AMINOTRANSFERASE 27 U/L (21-72); ALBUMIN 3.8 g/dL (3.5-5.0); ALKALINE PHOSPHATASE 93 U/L (38-126); ANION GAP 10 (5-19); ASPARTATE AMINO TRANSFERASE 35 U/L (17-59); BILIRUBIN,DIRECT 0.4 mg/dL (0.0-0.4); BILIRUBIN,TOTAL 0.7 mg/dL (0.2-1.3); BLOOD UREA NITROGEN 36 mg/dL (7-20); CALCIUM 9.2 mg/dL (8.4-10.2); CARBON DIOXIDE 27 mmol/L (22-30); CHLORIDE 104 mmol/L (98-107); GLUCOSE 100 mg/dL (75-110); POTASSIUM 4.9 mmol/L (3.6-5.0); SODIUM 140.5 mmol/L (137-145); TOTAL PROTEIN 7.1 g/dL (6.3-8.2)
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
[2017-12-01] MEDS ORDERED: SILVER SULFADIAZINE 1% CREAM 400 GM TP PRN (17:01)
[2017-12-01] MEDS ORDERED: OXYCODONE-ACETAMINOPHEN 5-325 MG TABLET PO ONE (17:03)
[2017-12-01] MEDS ORDERED: ONDANSETRON 4 MG TAB.RAPDIS PO ONE (17:03)
[2017-12-01] MEDS ORDERED: MORPHINE SULFATE 10 MG/ML INJ IV ONE (17:42)
[2017-12-01] MEDS ORDERED: SULFAMETHOXAZOLE/TRIMETHOPRIM 800-160 MG TABLET PO ONE (17:42)
[2017-12-01] MEDS ORDERED: DIPH/PERTUSS(ACELL)/TETANUS VAC/PF 0.5 ML SYR (>=10YO) IM ONE (17:45)
[2017-12-01 19:24] VITALS: BP 106/62
== END 2017-12-01 19:27 | disposition home or self-care (01) ==
LOC: ER 12:31
DX: T24.202A Burn of second degree of unspecified site of left lower limb, except ankle and foot, initial encounter (principal); X08.8XXA Exposure to other specified smoke, fire and flames, initial encounter; Y92.007 Garden or yard of unspecified non-institutional (private) residence as the place of occurrence of the external cause; E11.621 Type 2 diabetes mellitus with foot ulcer; L97.519 Non-pressure chronic ulcer of other part of right foot with unspecified severity; I10 Essential (primary) hypertension
CPT/HCPCS: 99283; 90471; 96375; 96365; 36415; 87040; 87070; 87205; 85025; 87077; 80053; 87186; 90715; A9270 ×3; J2270; J3490; J2543; S0119

== ENCOUNTER 2017-12-05 13:24 | Emergency (ER) | payer MEDICARE ==
[2017-12-05] MEDS ORDERED: SULFAMETHOXAZOLE/TRIMETHOPRIM 800-160 MG TABLET PO ONE (14:19)
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
[2017-12-05 14:33] LABS: HEMATOCRIT 37.1 % (37.9-51.0); HEMOGLOBIN 12.8 g/dL (13.5-17.0); MEAN CORPUSCULAR HEMOGLOBIN 32.4 pg (27.0-33.4); MEAN CORPUSCULAR HGB CONC 34.6 g/dL (32.0-36.0); MEAN CORPUSCULAR VOLUME 94 fl (80-97); PLATELET COUNT 391 10^3/uL (150-450); RED BLOOD COUNT 3.95 10^6/uL (4.35-5.55); WHITE BLOOD COUNT 3.9 10^3/uL (4.0-10.5)
[2017-12-05 14:39] VITALS: BP 136/74
[2017-12-05 15:00] LABS: ABSOLUTE LYMPHOCYTES# (MANUAL) 1.3 10^3/uL (0.5-4.7); ABSOLUTE MONOCYTES # (MANUAL) 0.4 10^3/uL (0.1-1.4); ABSOLUTE NEUTROPHILS# (MANUAL) 1.9 10^3/uL (1.7-8.2); BASOPHILS % (MANUAL) 0 % (0-2); EOSINOPHILS % (MANUAL) 7 % (0-6); LYMPHOCYTES % (MANUAL) 34 % (13-45); MONOCYTES % (MANUAL) 11 % (3-13); SEGMENTED NEUTROPHILS % (MAN) 48 % (42-78); TOTAL CELLS COUNTED 100
[2017-12-05 15:01] LABS: PLATELET COMMENT ADEQUATE; RBC MORPHOLOGY COMMENT NORMO-CYTIC/CHROMIC; TOXIC GRANULATION 1+
== END 2017-12-05 14:40 | disposition home or self-care (01) ==
LOC: ER 13:24
DX: R78.81 Bacteremia (principal); T24.202D Burn of second degree of unspecified site of left lower limb, except ankle and foot, subsequent encounter; X08.8XXD Exposure to other specified smoke, fire and flames, subsequent encounter; E11.9 Type 2 diabetes mellitus without complications; I10 Essential (primary) hypertension; Z79.899 Other long term (current) drug therapy
CPT/HCPCS: 99283; 36415; 87040; 85025; A9270

== ENCOUNTER → 2018-01-04 | Outpatient (CLI) | payer MEDICARE ==
--- NOTE | 2018-01-04 15:02 | RADIOLOGY REPORT (SQ) ---
EXAM DESCRIPTION: FOOT RIGHT COMPLETE COMPLETED DATE/TIME: 01/04/2018 2:49 pm REASON FOR STUDY: NON-PRS CHRONIC ULCER OTH PRT RIGHT FOOT W NECROSIS OF BONE L97.514 NON-PRS CHRON IC ULCER OTH PRT RIGHT FOOT W NECROSIS E11.621 TYPE 2 DIABETES MELLITUS WITH FOOT ULCER COMPARISON: 11/12/2017, 10/15/2017 right foot films NUMBER OF VIEWS: Three views. TECHNIQUE: AP, lateral and oblique radiographic images acquired of the right foot. LIMITATIONS: None. FINDINGS: Patient has a soft tissue ulcer along the 1st metatarsophalangeal joint region. There is diffuse soft tissue swelling at the 1st metatarsophalangeal joint. Since the prior exams on 11/12/2017 and 10/15/2017, there has been collapse of the articular surface 1s t metatarsal head. This is abnormal but nonspecific and could be related to osteo necrosis or infect ion. There is persistent irregularity at the base of the right great toe proximal phalanx at the MTP joint , with further erosion of the base proximal phalanx worrisome for osteomyelitis. No soft tissue gas. There are faintly radiopaque metallic foreign bodies in the plantar soft tissues over the 3rd toe and base 2nd metatarsal. IMPRESSION: 1st MTP joint soft tissue swelling and articular surface irregularity at the metatarsal head and base proximal phalanx worrisome for osteomyelitis TECHNICAL DOCUMENTATION: JOB ID: [id number] [employer]- All Rights Reserved Reading location - IP/workstation name: [email or web address]
[2018-01-04 15:26] LABS: ABSOLUTE BASOPHILS # (AUTO) 0.1 10^3/uL (0.0-0.2); ABSOLUTE EOSINOPHILS # (AUTO) 0.2 10^3/uL (0.0-0.6); ABSOLUTE LYMPHOCYTES (AUTO) 1.9 10^3/uL (0.5-4.7); ABSOLUTE MONOCYTES (AUTO) 0.4 10^3/uL (0.1-1.4); BASOPHILS % (AUTO) 1.5 % (0-2); EOSINOPHILS % (AUTO) 4.1 % (0-6); HEMATOCRIT 37.5 % (37.9-51.0); LYMPHOCYTES % (AUTO) 33.2 % (13-45); MEAN CORPUSCULAR HEMOGLOBIN 32.7 pg (27.0-33.4); MEAN CORPUSCULAR HGB CONC 34.6 g/dL (32.0-36.0); MEAN CORPUSCULAR VOLUME 94 fl (80-97); MONOCYTES % (AUTO) 7.4 % (3-13); PLATELET COUNT 231 10^3/uL (150-450); RED BLOOD COUNT 3.98 10^6/uL (4.35-5.55); RED CELL DISTRIBUTION WIDTH 12.7 % (11.5-14.0); SEGMENTED NEUTROPHILS % (AUTO) 53.8 % (42-78); TOTAL CELLS COUNTED % (AUTO) 100 %; WHITE BLOOD COUNT 5.6 10^3/uL (4.0-10.5)
[2018-01-04 15:32] LABS: ALANINE AMINOTRANSFERASE 26 U/L (21-72); ALBUMIN 3.8 g/dL (3.5-5.0); ALKALINE PHOSPHATASE 78 U/L (38-126); ANION GAP 7 (5-19); ASPARTATE AMINO TRANSFERASE 22 U/L (17-59); BILIRUBIN,DIRECT 0.3 mg/dL (0.0-0.4); BILIRUBIN,TOTAL 0.6 mg/dL (0.2-1.3); BLOOD UREA NITROGEN 27 mg/dL (7-20); CALCIUM 9.3 mg/dL (8.4-10.2); CARBON DIOXIDE 33 mmol/L (22-30); CHLORIDE 102 mmol/L (98-107); GLUCOSE 100 mg/dL (75-110); POTASSIUM 4.7 mmol/L (3.6-5.0); TOTAL PROTEIN 6.8 g/dL (6.3-8.2)
[2018-01-04 15:34] LABS: C-REACTIVE PROTEIN < 5.0 mg/L (<10.0)
[2018-01-04 16:05] LABS: ERYTHROCYTE SEDIMENTATION RATE 27 mm/hr (0-20)
== END ==
LOC: RAD 14:19
PROVIDERS: ATTEND Preventive Medicine Undersea and Hyperbaric Medicine
DX: E11.621 Type 2 diabetes mellitus with foot ulcer (principal); L97.514 Non-pressure chronic ulcer of other part of right foot with necrosis of bone
CPT/HCPCS: 36415; 80053; 83036; 85025; 85652; 86140

== ENCOUNTER → 2018-02-24 | Outpatient (CLI) | payer MEDICARE ==
--- NOTE | 2018-02-24 14:08 | RADIOLOGY REPORT (SQ) ---
EXAM DESCRIPTION: CT CHEST WITHOUT COMPLETED DATE/TIME: 02/24/2018 1:46 pm REASON FOR STUDY: INTERSTITIAL LUNG DISEASE (J84.9) J84.9 INTERSTITIAL PULMONARY DISEASE, UNSPECIFI ED COMPARISON: 11/11/2012 TECHNIQUE: CT scan performed of the chest without intravenous contrast. Images reviewed with lung, soft tissue and bone windows. Reconstructed coronal and sagittal MPR images reviewed. All images st ored on PACS. All CT scanners at this facility use dose modulation, iterative reconstruction, and/or weight based d osing when appropriate to reduce radiation dose to as low as reasonably achievable (ALARA). [facility]: Dose Right [facility]: CareDose [facility]: Dose Right [facility]: Teradose 4D [facility]: Smart [employer] RADIATION DOSE: CT Rad equipment meets quality standard of care and radiation dose reduction techniq ues were employed. CTDIvol: 11.3 mGy. DLP: 496 mGy-cm. mGy. LIMITATIONS: No technical limitations. FINDINGS: LUNGS AND PLEURA: No masses, infiltrates, or pneumothorax. No pleural effusions or pleura l calcifications. HILAR AND MEDIASTINAL STRUCTURES: No identified masses or abnormal nodes. No obvious aneurysm. HEART AND VASCULAR STRUCTURES: No aneurysm. Extensive coronary atherosclerosis. No pericardial effu neela. UPPER ABDOMEN: Prior gastric bypass. THYROID AND OTHER SOFT TISSUES: No masses. No adenopathy. BONES: No significant finding. HARDWARE: Pacemaker/defibrillator OTHER: No other significant findings. IMPRESSION: Coronary atherosclerosis. No acute findings in the chest. TECHNICAL DOCUMENTATION: JOB ID: [id number] Quality ID # [id number]: Final reports with documentation of one or more dose reduction techniques (e.g., Au tomated exposure control, adjustment of the mA and/or kV according to patient size, use of iterative reconstruction technique) 2010 [employer]- All Rights Reserved Reading location - IP/workstation name: [email or web address]
== END ==
LOC: RAD 13:35
PROVIDERS: ATTEND Internal Medicine Pulmonary Disease
DX: J84.9 Interstitial pulmonary disease, unspecified (principal); I25.10 Atherosclerotic heart disease of native coronary artery without angina pectoris
CPT/HCPCS: 71250

== ENCOUNTER → 2018-03-05 | Outpatient (CLI) | payer MEDICARE ==
--- NOTE | 2018-03-05 14:23 | RADIOLOGY REPORT (SQ) ---
EXAM DESCRIPTION: FOOT RIGHT COMPLETE COMPLETED DATE/TIME: 03/05/2018 2:03 pm REASON FOR STUDY: NONPRESSURE R FOOT FAT LAYER EXPOSED L97.512 NON-PRS CHRONIC ULCER OTH PRT RIGHT FOOT W FAT LAYER COMPARISON: 01/28/2018 NUMBER OF VIEWS: Three views. TECHNIQUE: AP, lateral and oblique radiographic images acquired of the right foot. LIMITATIONS: None. FINDINGS: MINERALIZATION: Normal. BONES: No acute fracture or dislocation. The previously described bony destructive changes adjacent to the 1st MTP joint are again identified and appear essentially unchanged. I cannot exclude bony in volvement by osteomyelitis. JOINTS: I cannot exclude a septic joint at the level of the 1st MTP joint. SOFT TISSUES: Soft tissue swelling is identified at the level of the 1st MTP joint. The previously d escribed needles at the level of the distal end of the proximal phalanx of the 3rd digit and at the l evel of the proximal end of the 2nd metatarsal are again identified. OTHER: No other significant finding IMPRESSION: Bony destructive changes adjacent to 1st MTP joint are again identified and appear relat ively stable compared to the previous study. I cannot exclude bony involvement by osteomyelitis and I cannot exclude a septic joint at the level of the 1st MTP joint. Clinical correlation is recommend ed. Other findings as noted above TECHNICAL DOCUMENTATION: JOB ID: [id number] [employer]- All Rights Reserved Reading location - IP/workstation name: [email or web address]
== END ==
LOC: RAD 13:37
PROVIDERS: ATTEND Preventive Medicine Undersea and Hyperbaric Medicine
DX: L97.512 Non-pressure chronic ulcer of other part of right foot with fat layer exposed (principal)

== ENCOUNTER → 2018-04-15 | Outpatient (CLI) | payer MEDICARE ==
--- NOTE | 2018-04-15 12:44 | RADIOLOGY REPORT (SQ) ---
EXAM DESCRIPTION: FOOT RIGHT COMPLETE COMPLETED DATE/TIME: 04/15/2018 10:20 am REASON FOR STUDY: NON-PRS CHRONIC ULCER OTH PRT RIGHT FOOT W NECROSIS OF BONE L97.514 NON-PRS CHRON IC ULCER OTH PRT RIGHT FOOT W NECROSIS COMPARISON: 03/05/2018 NUMBER OF VIEWS: Three views. TECHNIQUE: AP, lateral and oblique radiographic images acquired of the right foot. LIMITATIONS: None. FINDINGS: MINERALIZATION: Normal. BONES: Well-circumscribed erosions in the proximal phalanx and distal 1st metatarsal progressed from previous. Appearance is most typical of gout. JOINTS: No effusions. SOFT TISSUES: Chronic foreign bodies. OTHER: No other significant finding. IMPRESSION: Progression of erosive changes in the 1st metatarsal phalangeal joint most typical of go ut. Infection less likely as the erosions are well corticated. Chronic foreign bodies. TECHNICAL DOCUMENTATION: JOB ID: [id number] [employer] All Rights Reserved Reading location - IP/workstation name: [email or web address]
== END ==
LOC: RAD 09:23
PROVIDERS: ATTEND Preventive Medicine Undersea and Hyperbaric Medicine
DX: E11.621 Type 2 diabetes mellitus with foot ulcer (principal); L97.514 Non-pressure chronic ulcer of other part of right foot with necrosis of bone

== ENCOUNTER → 2018-10-12 | Outpatient (CLI) | payer MEDICARE ==
--- NOTE | 2018-10-12 08:52 | RADIOLOGY REPORT (SQ) ---
EXAM DESCRIPTION: U/S RETROPERITON (RENAL/AORTA) COMPLETED DATE/TIME: 10/12/2018 8:01 am REASON FOR STUDY: CKD III (N18.3), HTN (I12.9) N18.3 CHRONIC KIDNEY DISEASE, STAGE 3 (MODERATE) COMPARISON: None. TECHNIQUE: Dynamic and static grayscale images acquired of the kidneys and bladder and recorded on P ACS. Additional selected color Doppler and spectral images recorded. LIMITATIONS: None. FINDINGS: RIGHT KIDNEY: Normal size measuring 10.2 cm. No solid or suspicious masses. No hydronephr osis. No calcifications. There is a 1.5 cm lower pole cyst. LEFT KIDNEY: Normal size measuring 11.1 cm. No solid or suspicious masses. No hydronephrosis. No ca lcifications. BLADDER: No masses. OTHER FINDINGS: No other significant finding. IMPRESSION: Unremarkable renal ultrasound. No hydronephrosis. TECHNICAL DOCUMENTATION: JOB ID: [id number] [employer]- All Rights Reserved Reading location - IP/workstation name: [email or web address]
== END ==
LOC: RAD 07:28
PROVIDERS: ATTEND Internal Medicine Nephrology
DX: I12.9 Hypertensive chronic kidney disease with stage 1 through stage 4 chronic kidney disease, or unspecified chronic kidney disease (principal); N18.3 Chronic kidney disease, stage 3 (moderate)
CPT/HCPCS: 76770

== ENCOUNTER → 2019-02-09 | Outpatient (CLI) | payer MEDICARE ==
[2019-02-09 15:31] LABS: ABSOLUTE BASOPHILS # (AUTO) 0.1 10^3/uL (0.0-0.2); ABSOLUTE EOSINOPHILS # (AUTO) 0.3 10^3/uL (0.0-0.6); ABSOLUTE MONOCYTES (AUTO) 0.6 10^3/uL (0.1-1.4); ABSOLUTE NEUT (AUTO) 4.6 10^3/uL (1.7-8.2); BASOPHILS % (AUTO) 0.9 % (0-2); EOSINOPHILS % (AUTO) 3.4 % (0-6); HEMOGLOBIN 15.9 g/dL (13.5-17.0); LYMPHOCYTES % (AUTO) 27.2 % (13-45); MEAN CORPUSCULAR HEMOGLOBIN 32.5 pg (27.0-33.4); MEAN CORPUSCULAR HGB CONC 34.6 g/dL (32.0-36.0); MEAN CORPUSCULAR VOLUME 94 fl (80-97); MONOCYTES % (AUTO) 7.7 % (3-13); PLATELET COUNT 250 10^3/uL (150-450); RED BLOOD COUNT 4.91 10^6/uL (4.35-5.55); RED CELL DISTRIBUTION WIDTH 11.9 % (11.5-14.0); SEGMENTED NEUTROPHILS % (AUTO) 60.8 % (42-78); TOTAL CELLS COUNTED % (AUTO) 100 %; WHITE BLOOD COUNT 7.5 10^3/uL (4.0-10.5)
[2019-02-09 15:36] LABS: APPEARANCE,URINE SLIGHTLY-CLOUDY; BILIRUBIN,URINE NEGATIVE (NEGATIVE); GLUCOSE, URINE NEGATIVE (NEGATIVE); KETONES,URINE NEGATIVE (NEGATIVE); LEUKOCYTE ESTERASE,URINE SMALL (NEGATIVE); NITRITE,URINE NEGATIVE (NEGATIVE); PROTEIN,URINE 30 mg/dL (NEGATIVE); URINE SPECIFIC GRAVITY 1.018; UROBILINOGEN,URINE NEGATIVE mg/dL (<2.0)
[2019-02-09 15:40] LABS: COLOR,URINE DARK YELLOW
[2019-02-09 15:54] LABS: ALBUMIN 4.6 g/dL (3.5-5.0); ANION GAP 10 (5-19); BLOOD UREA NITROGEN 36 mg/dL (7-20); CALCIUM 9.7 mg/dL (8.4-10.2); CARBON DIOXIDE 33 mmol/L (22-30); CHLORIDE 96 mmol/L (98-107); GLUCOSE 82 mg/dL (75-110); PHOSPHORUS 5.1 mg/dL (2.5-4.5); POTASSIUM 4.5 mmol/L (3.6-5.0)
== END ==
LOC: OD 14:29
PROVIDERS: ATTEND Internal Medicine Nephrology
DX: N17.9 Acute kidney failure, unspecified (principal); I10 Essential (primary) hypertension; E11.9 Type 2 diabetes mellitus without complications
CPT/HCPCS: 36415; 80069; 81001; 85025

== ENCOUNTER 2019-12-14 11:12 | Inpatient (IN) | payer MEDICARE ==
--- NOTE | 2019-12-14 11:44 | ER Document Report ---
ED Medical Screen (RME) - General Chief Complaint: Foot Pain Stated Complaint: LEFT TOE PAIN Time Seen by Provider: 12/14/19 11:41 Primary Care Provider: Yohana IRWIN MD [Primary Care Provider] - Follow up as needed Mode of Arrival: Ambulatory Information source: Patient Notes: 64-year-old male presented to ED for an infected left second toe. He is already lost a large toe. He states he has banged it many times and now he thinks this might be broken and infected. He does have diabetes. He has been controlled with his diet. He has already lost the first toe. He does have arthritis and is having pain from that also. He states he does not smoke drink or use any drugs. He is alert oriented respirations regular nonlabored speaking in full sentences. I have greeted and performed a rapid initial assessment of this patient. A comprehensive ED assessment and evaluation of the patient, analysis of test results and completion of medical decision making process will be conducted by an additional ED providers. TRAVEL OUTSIDE OF THE [place] IN LAST 30 DAYS: No - Related Data Allergies/Adverse Reactions: No Known Allergies Allergy (Verified 12/01/17 14:07) Past Medical History - Past Medical History Cardiac Medical History: Reports: Hx Atrial Fibrillation, Hx Congestive Heart Failure, Hx Hypercholesterolemia, Hx Hypertension Denies: Hx Coronary Artery Disease, Hx Heart Attack Pulmonary Medical History: Denies: Hx Asthma, Hx Bronchitis, Hx COPD, Hx Pneumonia Neurological Medical History: Denies: Hx Cerebrovascular Accident, Hx Seizures Endocrine Medical History: Reports: Hx Diabetes Mellitus Type 2 Renal/ Medical History: Denies: Hx Peritoneal Dialysis Musculoskeltal Medical History: Reports Hx Arthritis Past Surgical History: Reports: Hx Abdominal Surgery - gastric sleeve, Hx Appendectomy, Hx Cholecystectomy, Hx Orthopedic Surgery - right toe surgery, Hx Tonsillectomy - Immunizations Hx Diphtheria, Pertussis, Tetanus Vaccination: Yes Physical Exam - Vital signs Vitals: Temp Pulse Resp BP Pulse Ox 97.9 F 67 18 139/76 H 97 12/14/19 11:21 12/14/19 11:21 12/14/19 11:21 12/14/19 11:21 12/14/19 11:21 Course - Vital Signs Vital signs: Temp Pulse Resp BP Pulse Ox 97.9 F 67 18 139/76 H 97 12/14/19 11:21 12/14/19 11:21 12/14/19 11:21 12/14/19 11:21 12/14/19 11:21 Doctor's Discharge - Discharge Referrals: Yohana IRWIN MD [Primary Care Provider] - Follow up as needed
--- NOTE | 2019-12-14 12:19 | RADIOLOGY REPORT (SQ) ---
EXAM DESCRIPTION: FOOT LEFT COMPLETE IMAGES COMPLETED DATE/TIME: 12/14/2019 12:10 pm REASON FOR STUDY: infected toe diabetic COMPARISON: None. NUMBER OF VIEWS: Three views. TECHNIQUE: AP, lateral and oblique radiographic images acquired of the left foot. LIMITATIONS: None. FINDINGS: MINERALIZATION: Normal. BONES: Prior amputation of the 1st toe at the metatarsal phalangeal joint. Lucency in the remaining distal phalanx of the 2nd digit. Osteomyelitis cannot be excluded. JOINTS: No effusions. SOFT TISSUES: Radiopaque foreign body overlying the ventral aspect of the foot. This lies between th e 1st and 2nd digits on the AP projection. OTHER: No other significant finding. IMPRESSION: 1. Postsurgical changes. Lucency in the distal phalanx of the 2nd digit raising the pos sibility of osteomyelitis. 2. Radiopaque foreign body overlying the ventral aspect of the foot. This appears to represent a sm all needle. TECHNICAL DOCUMENTATION: JOB ID: [id number] [employer]- All Rights Reserved Reading location - IP/workstation name: [email or web address]
[2019-12-14 12:32] LABS: APPEARANCE,URINE SLIGHTLY-CLOUDY; BILIRUBIN,URINE NEGATIVE (NEGATIVE); COLOR,URINE YELLOW; GLUCOSE, URINE NEGATIVE (NEGATIVE); KETONES,URINE NEGATIVE (NEGATIVE); LEUKOCYTE ESTERASE,URINE LARGE (NEGATIVE); NITRITE,URINE NEGATIVE (NEGATIVE); PROTEIN,URINE NEGATIVE (NEGATIVE); URINE SPECIFIC GRAVITY 1.017; UROBILINOGEN,URINE NEGATIVE mg/dL (<2.0)
[2019-12-14 12:32] LABS: ABSOLUTE BASOPHILS # (AUTO) 0.1 10^3/uL (0.0-0.2); ABSOLUTE EOSINOPHILS # (AUTO) 0.2 10^3/uL (0.0-0.6); ABSOLUTE LYMPHOCYTES (AUTO) 1.7 10^3/uL (0.5-4.7); ABSOLUTE MONOCYTES (AUTO) 0.7 10^3/uL (0.1-1.4); ABSOLUTE NEUT (AUTO) 7.2 10^3/uL (1.7-8.2); BASOPHILS % (AUTO) 0.8 % (0-2); EOSINOPHILS % (AUTO) 2.2 % (0-6); HEMATOCRIT 44.7 % (37.9-51.0); HEMOGLOBIN 15.6 g/dL (13.5-17.0); LYMPHOCYTES % (AUTO) 17.1 % (13-45); MEAN CORPUSCULAR HGB CONC 34.9 g/dL (32.0-36.0); MEAN CORPUSCULAR VOLUME 95 fl (80-97); MONOCYTES % (AUTO) 6.7 % (3-13); PLATELET COUNT 311 10^3/uL (150-450); RED BLOOD COUNT 4.73 10^6/uL (4.35-5.55); SEGMENTED NEUTROPHILS % (AUTO) 73.2 % (42-78); TOTAL CELLS COUNTED % (AUTO) 100 %; WHITE BLOOD COUNT 9.9 10^3/uL (4.0-10.5)
[2019-12-14 12:52] LABS: ALBUMIN 4.6 g/dL (3.5-5.0); ALKALINE PHOSPHATASE 105 U/L (38-126); ANION GAP 11 (5-19); ASPARTATE AMINO TRANSFERASE 28 U/L (17-59); BILIRUBIN,DIRECT 0.3 mg/dL (0.0-0.4); BILIRUBIN,TOTAL 0.8 mg/dL (0.2-1.3); BLOOD UREA NITROGEN 39 mg/dL (7-20); CALCIUM 9.2 mg/dL (8.4-10.2); CARBON DIOXIDE 31 mmol/L (22-30); CHLORIDE 96 mmol/L (98-107); GLUCOSE 121 mg/dL (75-110); POTASSIUM 4.1 mmol/L (3.6-5.0); TOTAL PROTEIN 7.4 g/dL (6.3-8.2)
[2019-12-14] MEDS ORDERED: CEFEPIME 2 GM/D5W RTU 2 GM/50 ML RTUPB IV ONE (13:37)
[2019-12-14] MEDS ORDERED: VANCOMYCIN HCL INJ 1000 MG VIAL IV ONE (13:37)
--- NOTE | 2019-12-14 13:37 | ER Document Report ---
ED Extremity Problem, Lower - General Chief Complaint: Toe Injury Stated Complaint: LEFT TOE PAIN Time Seen by Provider: 12/14/19 11:41 Primary Care Provider: Yohana IRWIN MD [ACTIVE STAFF] - Follow up as needed Mode of Arrival: Ambulatory Information source: Patient TRAVEL OUTSIDE OF THE [place] IN LAST 30 DAYS: No - HPI Notes: Patient presents with left second toe pain. He states that he has bumped his toe several times over the last month or so and has progressively become more swollen red and painful. He states that the pain radiates up his left foot. Is worse with movement and better with rest. It is sharp and constant. It is moderate to severe. He states he is diabetic and is concerned that it may be infected. He states he is already had to have his great toe amputated on the side. - Related Data Allergies/Adverse Reactions: No Known Allergies Allergy (Verified 12/14/19 12:39) Past Medical History - General Information source: Patient - Social History Smoking Status: Former Smoker Frequency of alcohol use: None Drug Abuse: None Family History: Reviewed & Not Pertinent Patient has homicidal ideation: No - Past Medical History Cardiac Medical History: Reports: Hx Atrial Fibrillation, Hx Congestive Heart F ailure, Hx Hypercholesterolemia, Hx Hypertension Denies: Hx Coronary Artery Disease, Hx Heart Attack Pulmonary Medical History: Denies: Hx Asthma, Hx Bronchitis, Hx COPD, Hx Pneumonia Neurological Medical History: Denies: Hx Cerebrovascular Accident, Hx Seizures Endocrine Medical History: Reports: Hx Diabetes Mellitus Type 2 Renal/ Medical History: Denies: Hx Peritoneal Dialysis Musculoskeletal Medical History: Reports Hx Arthritis Past Surgical History: Reports: Hx Abdominal Surgery - gastric sleeve, Hx Appendectomy, Hx Cholecystectomy, Hx Orthopedic Surgery - right toe surgery, Hx Tonsillectomy - Immunizations Hx Diphtheria, Pertussis, Tetanus Vaccination: Yes Review of Systems - Review of Systems Constitutional: denies: Chills, Fever Cardiovascular: denies: Chest pain, Palpitations Respiratory: denies: Cough, Short of breath -: Yes All other systems reviewed and negative Physical Exam - Vital signs Vitals: Temp Pulse Resp BP Pulse Ox 97.9 F 67 18 139/76 H 97 12/14/19 11:21 12/14/19 11:21 12/14/19 11:21 12/14/19 11:21 12/14/19 11:21 Interpretation: Normal - General General appearance: Appears well, Alert - HEENT Head: Normocephalic, Atraumatic Eyes: Normal Pupils: PERRL - Respiratory Respiratory status: No respiratory distress Chest status: Nontender Breath sounds: Normal Chest palpation: Normal - Cardiovascular Rhythm: Regular Heart sounds: Normal auscultation Murmur: No - Abdominal Inspection: Normal Distension: No distension Bowel sounds: Normal Tenderness: Nontender Organomegaly: No organomegaly - Back Back: Normal, Nontender - Extremities General upper extremity: Normal inspection, Nontender, Normal color, Normal ROM, Normal temperature General lower extremity: Other - Left second toe is erythematous indurated tender and swollen. Is consistent with a diabetic foot infection.. No: Chelle's sign - Neurological Neuro grossly intact: Yes Cognition: Normal Orientation: AAOx4 Ameya Coma Scale Eye Opening: Spontaneous Ameya Coma Scale Verbal: Oriented [place] Coma Scale Motor: Obeys Commands [place] Coma Scale Total: 15 Speech: Normal Motor strength normal: LUE, RUE, LLE, RLE Sensory: Normal - Psychological Associated symptoms: Normal affect, Normal mood - Skin Skin Temperature: Warm Skin Moisture: Dry Skin Color: Erythema Course - Re-evaluation Re-evalutation: 12/14/19 13:35 Patient presents with a swollen infected left great toe. Patient appears to have osteo-based on x-ray. Patient require IV antibiotics and possible surgical amputation of this infected toe. - Vital Signs Vital signs: Temp Pulse Resp BP Pulse Ox 97.9 F 67 18 139/76 H 97 12/14/19 11:21 12/14/19 11:21 12/14/19 11:21 12/14/19 11:21 12/14/19 11:21 - Laboratory Result Diagrams: 12/14/19 12:15 12/14/19 12:15 Laboratory results interpreted by me: 12/14/19 12/14/19 12/14/19 12:05 12:12 12:15 Chloride 96 L Carbon Dioxide 31 H BUN 39 H Creatinine 1.33 H Est GFR (MDRD) Non-Af 54 L Glucose 121 H POC Glucose 111 H Ur Leukocyte Esterase LARGE H Urine Ascorbic Acid 40 H - Diagnostic Test Radiology reviewed: Image reviewed, Reports reviewed Discharge - Discharge Clinical Impression: Diabetic infection of left foot Condition: Serious Disposition: ADMITTED INPATIENT Admitting Provider: Dale (Hospitalist) Unit Admitted: Medical Floor Referrals: Yohana IRWIN MD [ACTIVE STAFF] - Follow up as needed
[2019-12-14] MEDS ORDERED: MORPHINE SULFATE 10 MG/ML INJ IV ONE (15:02)
[2019-12-14] MEDS ORDERED: MAGNESIUM HYDROXIDE SUSP 30 ML UDCUP PO PRN (15:51)
[2019-12-14] MEDS ORDERED: ACETAMINOPHEN 325 MG TABLET PO PRN (15:51)
[2019-12-14] MEDS ORDERED: MAG HYDROX/AL HYDROX/SIMETH SUSP 30 ML UDCUP PO PRN (15:51)
[2019-12-14] MEDS ORDERED: DOCUSATE SODIUM 100 MG CAPSULE PO PRN (16:13)
[2019-12-14] MEDS ORDERED: MORPHINE SULFATE 10 MG/ML INJ IV PRN (16:55)
[2019-12-14] MEDS ORDERED: VANCOMYCIN HCL 0 MG in DEXTROSE 5%-WATER 250 ML IV NR (17:00)
--- NOTE | 2019-12-14 17:58 | PDOC H&P ---
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 He reports multiple incidents of minor trauma to the left second toe over the course of the past month one of which resulted in break in the skin distally. He noticed an increase in redness and swelling this morning with rapid progression in severity and pain. Evaluation in the emergency department included x-ray of the left foot notable for postsurgical changes, lucency in the distal phalanx of the second digit raising the possibility of osteomyelitis. Chemistry significant for elevated BUN (39), creatinine (1.33) and glucose (54). He was started on vancomycin and cefepime and received morphine for the pain. He is referred to the hospitalist service for further evaluation and management of the above-stated complaints and findings. Past Medical History Cardiac Medical History: Reports: Atrial Fibrillation, Congestive Heart Failure, Hyperlipidema, Hypertension Denies: Coronary Artery Disease, Myocardial Infarction Pulmonary Medical History: Denies: Asthma, Bronchitis, Chronic Obstructive Pulmonary Disease (COPD), Pneumonia Neurological Medical History: Denies: Seizures Endocrine Medical History: Reports: Diabetes Mellitus Type 2, Hypothyroidism Musculoskeltal Medical History: Reports: Arthritis Hematology: Denies: Anemia Infectious Medical History: Reports: Methicillin-Resistant Staph Aureus - 2007 Past Surgical History Past Surgical History: Reports: Appendectomy, Cholecystectomy, Orthopedic Surgery - right toe surgery, Tonsillectomy, Other - Gastric sleeve 2015 Social History Information Source: Patient Lives with: Alone Smoking Status: Former Smoker Electronic Cigarette use?: No Frequency of Alcohol Use: Rare Hx Recreational Drug Use: No Drugs: None Hx Prescription Drug Abuse: No - Advance Directive Resuscitation Status: Full Code Family History Family History: DM - Sister, Other - Cancer, mother and father Parental Family History Reviewed: Yes Children Family History Reviewed: Yes Sibling(s) Family History Reviewed.: Yes Medication/Allergy Home Medications: Alprazolam [Xanax 0.5 mg Tablet] 2 mg PO BIDP PRN 10/07/13 Amiodarone HCl [Cordarone 200 mg Tablet] 200 mg PO DAILY 01/01/17 Bumetanide 1 mg PO QAM 01/01/17 Rivaroxaban [Xarelto] 20 mg PO DAILY 01/01/17 Atorvastatin Calcium [Lipitor 20 mg Tablet] 20 mg PO QHS 12/14/19 Bumetanide [Bumex 1 mg Tablet] 0.5 mg PO QPM 12/14/19 Carvedilol [Coreg 6.25 mg Tablet] 6.25 mg PO Q12 12/14/19 Docusate Sodium [Colace 100 mg Capsule] 100 mg PO BIDP PRN 12/14/19 Fish Oil/Dha/Epa [Fish Oil 1,200 mg Fish Oil] 1,200 mg PO BID 12/14/19 Levothyroxine Sodium [Synthroid 0.088 mg Tablet] 88 mcg PO Q6AM 12/14/19 Liothyronine Sodium [Cytomel] 5 mcg PO QPM 12/14/19 Liothyronine Sodium [Cytomel] 10 mg PO QAM 12/14/19 Multivitamin [Daily Multiple Vitamin] 1 tab PO DAILY 12/14/19 Omeprazole 40 mg PO DAILYP PRN 12/14/19 Oxycodone HCl [Oxycodone HCl ER] 10 mg PO Q6 12/14/19 Sacubitril/Valsartan [Entresto 24 mg/26 mg Tablet] 0.5 tab PO Q12 12/14/19 Allergies/Adverse Reactions: No Known Allergies Allergy (Verified 12/14/19 12:39) Review of Systems Constitutional: ABSENT: chills, fever(s), headache(s) Eyes: ABSENT: visual disturbances Nose, Mouth, and Throat: ABSENT: headache(s), vertigo Cardiovascular: ABSENT: chest pain, dyspnea on exertion, edema, palpitations Respiratory: ABSENT: cough, dyspnea Gastrointestinal: ABSENT: abdominal pain, diarrhea, nausea, vomiting Musculoskeletal: PRESENT: back pain - chronic Integumentary: PRESENT: as per HPI Neurological: ABSENT: numbness, paresthesias, tingling, weakness Endocrine: ABSENT: polyphagia, polyuria Hematologic/Lymphatic: ABSENT: lymphadenopathy Physical Exam Vital Signs: Temp Pulse Resp BP Pulse Ox 98.2 F 70 18 127/76 H 99 12/14/19 16:33 12/14/19 16:33 12/14/19 16:33 12/14/19 16:33 12/14/19 16:33 Intake & Output 12/13/19 12/14/19 12/15/19 06:59 06:59 06:59 Intake Total 50 Balance 50 Weight 103 kg General appearance: PRESENT: no acute distress, cooperative, well-developed, well-nourished Head exam: PRESENT: atraumatic, normocephalic Eye exam: PRESENT: EOMI, PERRLA. ABSENT: scleral icterus Ear exam: PRESENT: normal external ear exam. ABSENT: bleeding, drainage Mouth exam: PRESENT: moist, neck supple, tongue midline Neck exam: PRESENT: full ROM Respiratory exam: PRESENT: clear to auscultation felipe, symmetrical, unlabored. ABSENT: rhonchi, tachypnea, wheezes Cardiovascular exam: PRESENT: RRR, +S1, +S2. ABSENT: diastolic murmur, rubs, systolic murmur Pulses: PRESENT: normal dorsalis pedis pul GI/Abdominal exam: PRESENT: normal bowel sounds. ABSENT: ascites, distended, guarding, tenderness Rectal exam: PRESENT: deferred Extremities exam: PRESENT: other - Left second toe is erythematous indurated tender, swollen and warm to the touch with decreased ROM and limited function noted. Erythema extends to the MTP joint. Left hallux amputation.. ABSENT: pedal edema Musculoskeletal exam: PRESENT: ambulatory, full ROM Neurological exam: PRESENT: alert, awake, oriented to person, oriented to place, oriented to time, oriented to situation, CN II-XII grossly intact Psychiatric exam: PRESENT: appropriate affect, normal mood Skin exam: PRESENT: dry, erythema - Erythematous left second toe., intact, warm. ABSENT: rash Results Laboratory Results: 12/14/19 12:15 12/14/19 12:15 12/14/19 12/14/19 12/14/19 12:05 12:15 12:15 WBC 9.9 RBC 4.73 Hgb 15.6 Hct 44.7 MCV 95 MCH 33.0 MCHC 34.9 RDW 12.0 Plt Count 311 Seg Neutrophils % 73.2 Sodium 138.1 Potassium 4.1 Chloride 96 L Carbon Dioxide 31 H Anion Gap 11 BUN 39 H Creatinine 1.33 H Est GFR ( Amer) > 60 Glucose 121 H Calcium 9.2 Total Bilirubin 0.8 AST 28 Alkaline Phosphatase 105 Total Protein 7.4 Albumin 4.6 Lipase 89.2 Urine Color YELLOW Urine Appearance SLIGHTLY-CLOUDY Urine pH 5.0 Ur Specific [place] 1.017 Urine Protein NEGATIVE Urine Glucose (UA) NEGATIVE Urine Ketones NEGATIVE Urine Blood NEGATIVE Urine Nitrite NEGATIVE Ur Leukocyte Esterase LARGE H Urine WBC (Auto) 16 Urine RBC (Auto) 2 Impressions: Foot X-Ray 12/14/19 11:42 IMPRESSION: 1. Postsurgical changes. Lucency in the distal phalanx of the 2nd digit raising the possibility of osteomyelitis. 2. Radiopaque foreign body overlying the ventral aspect of the foot. This appears to represent a small needle. Assessment and Plan - Diagnosis (1) Cellulitis of second toe, left Is this a current diagnosis for this admission?: Yes Plan: Patient with cellulitis of the left second toe, suspicious for osteomyelitis as supported by radiographic and physical exam findings. Current treatment regimen includes cefepime and vancomycin. General surgery was consulted. Investigate possible amputation. Consider monitoring CRP and ESR for disease progression. (2) Congestive heart failure due to cardiomyopathy Is this a current diagnosis for this admission?: Yes Plan: Continue with home treatment regimen. Xarelto discontinued as he has a potential for amputation. Lovenox started. PT/INR, and d-dimer ordered and morning labs. (3) History of obesity Is this a current diagnosis for this admission?: Yes Plan: Patient reports history of obesity. Treated with gastric sleeve in 2016 with noted 160 pound weight loss. His current BMI is 28.4. Current blood glucose level elevated at 121. We will order hemoglobin A1c in the morning. Continue to monitor blood glucose levels with regular Accu-checks. (4) Hypothyroidism Qualifiers: Hypothyroidism type: acquired Qualified Code(s): E03.9 - Hypothyroidism, unspecified Is this a current diagnosis for this admission?: Yes Plan: Continue home treatment regimen. Will order TSH, free T3 and T4 with morning labs. (5) Hypertension Qualifiers: Hypertension type: essential hypertension Qualified Code(s): I10 - Essential (primary) hypertension Is this a current diagnosis for this admission?: Yes Plan: Continue home treatment regimen. - Time Time Spent with patient: 25-34 minutes Medications reviewed and adjusted accordingly: Yes Anticipated Discharge Disposition: Home, Self Care Anticipated Discharge Timeframe: within 72 hours - Inpatient Certification Based on my medical assessment, after consideration of the patient's comorbidities, presenting symptoms, or acuity I expect that the services needed warrant INPATIENT care.: Yes I certify that my determination is in accordance with my understanding of Medicare's requirements for reasonable and necessary INPATIENT services [42 CFR 412.3e].: Yes Medical Necessity: Failure to Improve With Outpatient Therapy, Significant Comorbidiites Make Outpatient Treatment Too Risky, Need For IV Fluids, Need for Pain Control, Need for IV Antibiotics, Need for Surgery Post Hospital Care: D/C or Transfer Summary
[2019-12-14] MEDS: OXYCODONE HCL SR 10 MG TABLET PO SCH ×2 (18:00→23:22)
[2019-12-14] MEDS ORDERED: (PENDING PHARMACY ID) (Liothyronine Sodium [Cytomel] 5 MCG) PO SCH (18:00)
[2019-12-14] MEDS: NORMAL SALINE 1000 ML 1,000 ML IV PRN (18:37)
--- NOTE | 2019-12-14 19:05 | EKG REPORT ---
SEVERITY:- ABNORMAL ECG - SINUS RHYTHM NONSPECIFIC IVCD WITH LAD LOW VOLTAGE THROUGHOUT CONSIDER ANTEROSEPTAL INFARCT : Confirmed by: Rodrigue Scherer 14-Dec-2019 19:04:50
[2019-12-14] MEDS ORDERED: DEXTROSE 40% GEL 15 GM TUBE PO PRN ×2 (20:46)
[2019-12-14] MEDS ORDERED: GLUCAGON,HUMAN RECOMB 1 MG INJ IM PRN (20:46)
[2019-12-14] MEDS ORDERED: DEXTROSE 50%-WATER 25 GM/50 ML DISP.SYRIN IV PRN ×2 (20:46)
[2019-12-14] MEDS ORDERED: HEPARIN SOD (PORCINE) 5,000 UNIT/ML 1 ML VIAL SUBCUT SCH (22:00)
[2019-12-14] MEDS: CARVEDILOL 6.25 MG TABLET PO SCH (22:08)
[2019-12-14] MEDS: ATORVASTATIN CALCIUM 20 MG TABLET PO SCH (22:08)
[2019-12-14] MEDS: SACUBITRIL/VALSARTAN 24 MG/26 MG TABLET PO SCH (22:08)
[2019-12-14] MEDS: ENOXAPARIN SODIUM INJ 100 MG/1 ML DISP.SYRIN SUBCUT SCH ×2 (22:09→22:57)
[2019-12-14] MEDS: CEFEPIME 1 GM/D5W RTU 1 GM/50 ML RTUPB IV SCH (22:10)
[2019-12-14] MEDS ORDERED: HYDROMORPHONE HCL INJ/PF 2 MG/ML AMPULE IV PRN ×3 (22:22→22:28)
[2019-12-14] MEDS: HYDROMORPHONE HCL INJ/PF 2 MG/ML AMPULE IV PRN (22:42)
[2019-12-15] MEDS: HYDROMORPHONE HCL INJ/PF 2 MG/ML AMPULE IV PRN ×3 (03:28→21:56)
[2019-12-15] MEDS: LEVOTHYROXINE SODIUM 0.088 MG TABLET PO SCH (05:14)
[2019-12-15] MEDS: OXYCODONE HCL SR 10 MG TABLET PO SCH ×4 (05:14→23:46)
[2019-12-15] MEDS: VANCOMYCIN HCL 1,250 MG in DEXTROSE 5%-WATER 250 ML IV SCH ×2 (05:15→17:19)
[2019-12-15 05:41] LABS: INTERNATIONAL RATION (INR) 1.28; PROTHROMBIN TIME 16.2 SEC (11.4-15.4)
[2019-12-15 05:43] LABS: ANION GAP 7 (5-19); BLOOD UREA NITROGEN 30 mg/dL (7-20); C-REACTIVE PROTEIN 13.3 mg/L (<10.0); CALCIUM 8.5 mg/dL (8.4-10.2); CARBON DIOXIDE 31 mmol/L (22-30); CHLORIDE 100 mmol/L (98-107); D-DIMER 0.38 ug/mL (0.00-0.50); GLUCOSE 83 mg/dL (75-110); POTASSIUM 3.9 mmol/L (3.6-5.0); TRIGLYCERIDES 84 mg/dL (<150)
[2019-12-15 05:52] LABS: DIRECT LDL 35 mg/dL (<100)
[2019-12-15 05:58] LABS: FREE T3 3.82 pg/mL (2.77-5.27); FREE T4 (FREE THYROXINE) 1.53 ng/dL (0.78-2.19)
[2019-12-15 06:11] LABS: THYROID STIMULATING HORMONE 4.39 uIU/mL (0.47-4.68)
--- NOTE | 2019-12-15 06:28 | PDOC CONSULTATION ---
Consultation Consult Date: 12/14/19 Provider Consulted: SURGICAL SURGICALIST Consult reason:: Diabetic foot infection History of Present Illness Admission Date/PCP: 12/14/19 15:32 GABRIELLE CAMARA MD History of Present Illness: VITALY HENNESSY is a 64 year old male seen in consultation at the request of the hospitalist service. The patient has diet-controlled diabetes. He has a history of morbid obesity, status post gastric bypass. Now his BMI is 28. The patient used to take medications for his diabetes, but now it is well controlled with diet alone. Patient has a history of congestive heart failure with an implanted AICD, and is currently taking blood thinners. He reports a 2 to 3-day history of swelling, pain, and purulent drainage of the left second toe. The patient is status post amputation of his left great toe approximately 8 years ago. At home, he reports striking the left second toe on a piece of furniture, causing a break in the skin distally. Since that time, there has been increasing redness, swelling, and pain in the left second toe. The erythema extended down to the MTP joint, and he noted drainage. At that time, the patient presented to the hospital for further treatment. He rates his pain as 6 out of 10. His pain does not radiate. He reports that it is a burning, throbbing sensation. The patient denies any chest pain, shortness of breath, fe vers, chills, nausea, vomiting, melena, hematochezia, abdominal pain, orthostasis, dizziness, blurry vision. Past Medical History Cardiac Medical History: Reports: Atrial Fibrillation, Congestive Heart Failure, Hyperlipidema, Hypertension Denies: Coronary Artery Disease, Myocardial Infarction Pulmonary Medical History: Denies: Asthma, Bronchitis, Chronic Obstructive Pulmonary Disease (COPD), Pneumonia Neurological Medical History: Denies: Seizures Endocrine Medical History: Reports: Diabetes Mellitus Type 2, Hypothyroidism Musculoskeltal Medical History: Reports: Arthritis Psychiatric Medical History: Reports: Depression Hematology: Denies: Anemia Infectious Medical History: Reports: Methicillin-Resistant Staph Aureus - 2007 Past Surgical History Past Surgical History: Reports: Appendectomy, Cholecystectomy, Orthopedic Surger y - right toe surgery, Tonsillectomy, Other - Gastric sleeve 2016 Social History Lives with: Alone Smoking Status: Never Smoker Electronic Cigarette use?: No Frequency of Alcohol Use: Rare Hx Recreational Drug Use: No Drugs: None Hx Prescription Drug Abuse: No - Advance Directive Resuscitation Status: Full Code Family History Family History: DM - Sister, Other - Cancer, mother and father Parental Family History Reviewed: Yes Children Family History Reviewed: Yes Sibling(s) Family History Reviewed.: Yes Medication/Allergy Home Medications: Alprazolam [Xanax 0.5 mg Tablet] 2 mg PO BIDP PRN 10/07/13 Amiodarone HCl [Cordarone 200 mg Tablet] 200 mg PO DAILY 01/01/17 Bumetanide 1 mg PO QAM 01/01/17 Rivaroxaban [Xarelto] 20 mg PO DAILY 01/01/17 Atorvastatin Calcium [Lipitor 20 mg Tablet] 20 mg PO QHS 12/14/19 Bumetanide [Bumex 1 mg Tablet] 0.5 mg PO QPM 12/14/19 Carvedilol [Coreg 6.25 mg Tablet] 6.25 mg PO Q12 12/14/19 Docusate Sodium [Colace 100 mg Capsule] 100 mg PO BIDP PRN 12/14/19 Fish Oil/Dha/Epa [Fish Oil 1,200 mg Fish Oil] 1,200 mg PO BID 12/14/19 Levothyroxine Sodium [Synthroid 0.088 mg Tablet] 88 mcg PO Q6AM 12/14/19 Liothyronine Sodium [Cytomel] 5 mcg PO QPM 12/14/19 Liothyronine Sodium [Cytomel] 10 mg PO QAM 12/14/19 Multivitamin [Daily Multiple Vitamin] 1 tab PO DAILY 12/14/19 Omeprazole 40 mg PO DAILYP PRN 12/14/19 Oxycodone HCl [Oxycodone HCl ER] 10 mg PO Q6 12/14/19 Sacubitril/Valsartan [Entresto 24 mg/26 mg Tablet] 0.5 tab PO Q12 12/14/19 Allergies/Adverse Reactions: No Known Allergies Allergy (Verified 12/14/19 12:39) Review of Systems Constitutional: ABSENT: anorexia, chills, fatigue, fever(s) Eyes: ABSENT: visual disturbances Ears: ABSENT: hearing changes Nose, Mouth, and Throat: ABSENT: sore throat Cardiovascular: ABSENT: chest pain Respiratory: ABSENT: cough Gastrointestinal: ABSENT: abdominal pain, bloating Genitourinary: ABSENT: dysuria Integumentary: PRESENT: lesions - left second toe, wounds - Left second toe Neurological: ABSENT: confusion, convulsions, dizziness Psychiatric: ABSENT: anxiety, depression Endocrine: ABSENT: cold intolerance, heat intolerance Hematologic/Lymphatic: ABSENT: easy bleeding, easy bruising Physical Exam Vital Signs: Temp Pulse Resp BP Pulse Ox 98.7 F 66 18 131/75 H 100 12/14/19 17:41 12/14/19 17:58 12/14/19 17:41 12/14/19 17:41 12/14/19 17:41 Intake & Output 12/13/19 12/14/19 12/15/19 06:59 06:59 06:59 Intake Total 50 Balance 50 Weight 103 kg General appearance: PRESENT: no acute distress, cooperative. ABSENT: disheveled Head exam: PRESENT: atraumatic, normocephalic Eye exam: PRESENT: EOMI, PERRLA. ABSENT: scleral icterus Mouth exam: PRESENT: moist, neck supple Neck exam: ABSENT: meningismus, tenderness, thyromegaly, tracheal deviation Respiratory exam: PRESENT: unlabored. ABSENT: tachypnea, wheezes Cardiovascular exam: ABSENT: tachycardia Vascular exam: PRESENT: normal capillary refill GI/Abdominal exam: PRESENT: soft. ABSENT: distended, firm, guarding, tenderness Rectal exam: PRESENT: deferred Extremities exam: PRESENT: other - Erythema of the left second toe extending to the MTP joint. Distal ulceration, draining purulent material.. ABSENT: +1 edema Musculoskeletal exam: PRESENT: other - History of left great toe amputation. Neurological exam: PRESENT: alert, awake, oriented to person, oriented to place, oriented to time, oriented to situation, CN II-XII grossly intact, other - Peripheral neuropathy present Psychiatric exam: ABSENT: agitated, anxious, depressed Focused psych exam: ABSENT: delusional Skin exam: PRESENT: erythema - See extremity exam. ABSENT: cyanosis, jaundice Results Laboratory Results: 12/14/19 12:15 12/14/19 12:15 12/14/19 12/14/19 12/14/19 12:05 12:15 12:15 WBC 9.9 RBC 4.73 Hgb 15.6 Hct 44.7 MCV 95 MCH 33.0 MCHC 34.9 RDW 12.0 Plt Count 311 Seg Neutrophils % 73.2 Sodium 138.1 Potassium 4.1 Chloride 96 L Carbon Dioxide 31 H Anion Gap 11 BUN 39 H Creatinine 1.33 H Est GFR ( Amer) > 60 Glucose 121 H Calcium 9.2 Total Bilirubin 0.8 AST 28 Alkaline Phosphatase 105 Total Protein 7.4 Albumin 4.6 Lipase 89.2 Urine Color YELLOW Urine Appearance SLIGHTLY-CLOUDY Urine pH 5.0 Ur Specific [place] 1.017 Urine Protein NEGATIVE Urine Glucose (UA) NEGATIVE Urine Ketones NEGATIVE Urine Blood NEGATIVE Urine Nitrite NEGATIVE Ur Leukocyte Esterase LARGE H Urine WBC (Auto) 16 Urine RBC (Auto) 2 Impressions: Foot X-Ray 12/14/19 11:42 IMPRESSION: 1. Postsurgical changes. Lucency in the distal phalanx of the 2nd digit raising the possibility of osteomyelitis. 2. Radiopaque foreign body overlying the ventral aspect of the foot. This appears to represent a small needle. Assessment & Plan - Diagnosis (1) Diabetic infection of left foot Is this a current diagnosis for this admission?: Yes - Plan Summary Plan Summary: This is a 64-year-old male with a diabetic foot infection of the left second toe. His infection is severe. He has purulent drainage, and presence of osteomyelitis on his x-ray. I have recommended amputation of the toe, and the patient has agreed. The patient took his last dose of Xarelto this morning (at 4 AM). I would recommend waiting 48 hours from his last dose of Xarelto, before proceeding with surgery. I have discussed this with the patient at length. Continue antibiotics. Surgery will continue to follow with you.
[2019-12-15] MEDS: LIOTHYRONINE SODIUM 5 MCG TABLET PO SCH ×3 (07:32→17:19)
[2019-12-15] MEDS: INSULIN REG, HUMAN 100 UNIT/ML 3 ML VIAL (PYX) SUBCUT SCH ×2 (07:48→16:58)
[2019-12-15] MEDS ORDERED: LIOTHYRONINE SODIUM PO SCH (08:00)
[2019-12-15] MEDS: BUMETANIDE 1 MG TABLET PO SCH (09:05)
[2019-12-15] MEDS: AMIODARONE HCL 200 MG TABLET PO SCH (09:05)
[2019-12-15] MEDS: ENOXAPARIN SODIUM INJ 100 MG/1 ML DISP.SYRIN SUBCUT SCH ×2 (09:06→21:47)
[2019-12-15] MEDS: SACUBITRIL/VALSARTAN 24 MG/26 MG TABLET PO SCH ×2 (09:06→21:46)
[2019-12-15] MEDS: MULTIVITAMIN TABLET PO SCH (09:06)
[2019-12-15] MEDS: CARVEDILOL 6.25 MG TABLET PO SCH ×2 (09:06→21:47)
[2019-12-15] MEDS: NORMAL SALINE 1000 ML 1,000 ML IV PRN ×2 (09:14→17:23)
[2019-12-15] MEDS: CEFEPIME 1 GM/D5W RTU 1 GM/50 ML RTUPB IV SCH ×2 (09:14→21:45)
[2019-12-15] MEDS ORDERED: MIDAZOLAM 2 MG/2 ML INJ ONE (11:48)
[2019-12-15] MEDS ORDERED: FENTANYL CITRATE INJ/PF 100 MCG/2 ML AMPUL ONE (11:48)
[2019-12-15] MEDS ORDERED: PROPOFOL INJ 200 MG/20 ML VIAL IV ONE (11:49)
[2019-12-15] MEDS ORDERED: ONDANSETRON HCL INJ/PF 4 MG/2 ML SDV ONE (11:49)
[2019-12-15] MEDS ORDERED: LIDOCAINE 1% INJ-PF (10 MG/ML) 30 ML SDV ONE (11:49)
[2019-12-15] MEDS ORDERED: PROMETHAZINE HCL INJ 25 MG/1 ML VIAL IV PRN (12:33)
[2019-12-15] MEDS ORDERED: FENTANYL CITRATE INJ/PF 100 MCG/2 ML AMPUL IV PRN ×3 (12:33)
[2019-12-15] MEDS ORDERED: DIPHENHYDRAMINE HCL 50 MG/ML VIAL IV PRN (12:33)
[2019-12-15] MEDS ORDERED: MEPERIDINE HCL/PF INJ 25 MG/1 ML DISP.SYRIN IV PRN (12:33)
--- NOTE | 2019-12-15 12:56 | Operative Report ---
Operative Report DATE OF SURGERY: 12/15/19 PREOPERATIVE DIAGNOSIS: Infected diabetic left second toe POSTOPERATIVE DIAGNOSIS: Same OPERATION: Complete left second ray amputation, with DPC sutures SURGEON: SALAZAR GAVIRIA ANESTHESIA: LMAC TISSUE REMOVED OR ALTERED: Left second toe COMPLICATIONS: None ESTIMATED BLOOD LOSS: 15 cc INTRAOPERATIVE FINDINGS: See below PROCEDURE: Patient was seen in the preop holding area the left foot was marked. Then taken the main operating where LMAC anesthesia was induced. Left foot was prepped and draped sterile fashion. Surgical plan surgical timeout were conducted. The findings were significant for a previously amputated left first toe with closure. The left second toe swollen, erythematous, with dry ulceration over the plantar surface distally. Of note there was mild streaking the base of the second toe extending onto the dorsum of the foot. The skin at the base of the left second toe was anesthetized 1% plain lidocaine. The toe was amputated with a #15 blade. The proximal phalanx was debrided with rongeur. The head of the left second metatarsal was debrided with the rongeur as well. Digital vessels were cauterized both on the medial and lateral sides of the patient's side. Nonviable fascia and tendon trimmed with Randolph scissors. Wound irrigated with saline. Because of the erythema at the dorsal surface of the foot just proximal to the amputation site, I felt that a delayed primary closure approach would be safest. Therefore 4 interrupted 3-0 Ethilon vertical mattress sutures were placed into position. Knots were not tied. Xeroform placed into the pocket of the wound cavity. An additional piece of Xeroform was laid over the wound. 4 x 4's placed between the toes, and the left foot wrapped with Kerlix and Paul wrap. Patient tolerated procedure well. Plan: 1. Continue IV antibiotics, leg elevation; patient may eat. 2. Anticipate delayed primary closure in 48 to 72hours. This was explained to the patient preoperatively. 3. We will continue to follow patient with you.
[2019-12-15] MEDS ORDERED: MORPHINE SULFATE 10 MG/ML INJ ONE (13:15)
[2019-12-15] MEDS: MORPHINE SULFATE 10 MG/ML INJ IV PRN ×2 (13:19→13:29)
--- NOTE | 2019-12-15 16:25 | PDOC PROGRESS REPORT ---
Subjective Progress Note for:: 12/15/19 Subjective:: Patient is resting in bed comfortably with his left leg elevated with two pillows. His only complaint is a minor pain in the left foot but states this is significantly better than prior to surgery. Denies fever, chills, chest pain, shortness of breath, cough, abdominal pain, nausea, vomiting, diarrhea, or lower extremity swelling. Reason For Visit: CELLULITIS,HX CHF Physical Exam Vital Signs: Temp Pulse Resp BP Pulse Ox 97.1 F 60 21 H 119/73 68 L 12/15/19 13:40 12/15/19 13:40 12/15/19 13:40 12/15/19 13:40 12/15/19 13:40 Intake & Output 12/14/19 12/15/19 12/16/19 06:59 06:59 06:59 Intake Total 1750 1850 Output Total 1400 5 Balance 350 1845 Weight 101.9 kg General appearance: PRESENT: no acute distress, cooperative, well-developed, well-nourished Head exam: PRESENT: atraumatic, normocephalic Eye exam: PRESENT: EOMI, PERRLA. ABSENT: scleral icterus Ear exam: PRESENT: normal external ear exam. ABSENT: bleeding, drainage Mouth exam: PRESENT: moist, neck supple, tongue midline Neck exam: PRESENT: full ROM. ABSENT: lymphadenopathy, tenderness Respiratory exam: PRESENT: clear to auscultation felipe, symmetrical, unlabored. ABSENT: rales, rhonchi, tachypnea, wheezes Cardiovascular exam: PRESENT: RRR, +S1, +S2. ABSENT: diastolic murmur, gallop, rubs, systolic murmur Pulses: PRESENT: normal dorsalis pedis pul GI/Abdominal exam: PRESENT: normal bowel sounds, soft. ABSENT: distended, firm, guarding, tenderness Rectal exam: PRESENT: deferred Extremities exam: ABSENT: calf tenderness, pedal edema Musculoskeletal exam: PRESENT: other - Left foot in dressing s/p amputation left second toe. Neurological exam: PRESENT: alert, awake, oriented to person, oriented to place, oriented to time, oriented to situation, CN II-XII grossly intact Psychiatric exam: PRESENT: appropriate affect, normal mood Skin exam: PRESENT: dry, intact, normal color, warm. ABSENT: erythema Results Laboratory Results: 12/14/19 12:15 12/15/19 04:57 12/15/19 12/15/19 04:57 04:57 Sodium 137.8 Potassium 3.9 Chloride 100 Carbon Dioxide 31 H Anion Gap 7 BUN 30 H Creatinine 1.17 Est GFR ( Amer) > 60 Glucose 83 Calcium 8.5 Magnesium 2.2 C-Reactive Protein 13.3 H Triglycerides 84 Cholesterol 100.30 LDL Cholesterol Direct 35 VLDL Cholesterol 17.0 HDL Cholesterol 49 TSH 4.39 Free T4 1.53 Free T3 pg/mL 3.82 Impressions: Foot X-Ray 12/14/19 11:42 IMPRESSION: 1. Postsurgical changes. Lucency in the distal phalanx of the 2nd digit raising the possibility of osteomyelitis. 2. Radiopaque foreign body overlying the ventral aspect of the foot. This appears to represent a small needle. Assessment and Plan - Diagnosis (1) Status post amputation of lesser toe of left foot Is this a current diagnosis for this admission?: Yes (2) Cellulitis of second toe, left Is this a current diagnosis for this admission?: Yes (3) Urine leukocytes increased Is this a current diagnosis for this admission?: Yes (4) Congestive heart failure due to cardiomyopathy Is this a current diagnosis for this admission?: Yes (5) Hypothyroidism Qualifiers: Hypothyroidism type: acquired Qualified Code(s): E03.9 - Hypothyroidism, unspecified Is this a current diagnosis for this admission?: Yes (6) Hypertension Qualifiers: Hypertension type: essential hypertension Qualified Code(s): I10 - Esse ntial (primary) hypertension Is this a current diagnosis for this admission?: Yes (7) History of diabetes mellitus, type II Is this a current diagnosis for this admission?: Yes (8) History of atrial fibrillation Is this a current diagnosis for this admission?: Yes (9) History of obesity Is this a current diagnosis for this admission?: Yes - Plan Summary Summary: VITALY HENNESSY is a 64 year old male with past medical history of hypertension, HLD, hypothyroidism, congestive heart failure (AICD), diet controlled diabetes mellitus, chronic pain, staph/MRSA infection (2007), and a left hallux amputat ion secondary to infection (2011) who presented to the ED on 12/14/2019 complaining of left second toe pain with associated redness, warmth, swelling, drainage and limitation of function. Evaluation in the emergency department included x-ray of the left foot notable for postsurgical changes, lucency in the distal phalanx of the second digit raising the possibility of osteomyelitis. He was started on vancomycin and cefepime and received morphine for the pain. Surgery was consulted and patient was ultimately treated with amputation. Status post amputation of lesser toe of left foot Complete left second ray amputation, with DPC sutures 12/15/2019 Surgical dressing including: xeroform, kerlix and sylvia wrap in place. Patient tolerated procedure well. He is to keep his left leg elevated. Surgery will continue to follow patient. Cellulitis of second toe, left Patient with cellulitis of the left second toe, suspicious for osteomyelitis as supported by radiographic and physical exam findings. He is s/p amputation. Continue with cefepime and vancomycin. CRP elevated today at 13.3. Will continue to follow, expect significant drop in value as infected tissue/bone was removed. Blood culture 12/14/2019 with no growth in 24 hours. Urine Leukocyte elevated: Elevated urine leukocyte esterase on UA 12/14/2019, suggestive of urine infection. Urine culture ordered but not collected. Pt denies urinary symptoms today. His current antibiotic regimen would treat infection if present. Congestive heart failure due to cardiomyopathy He is on a cardiac low fat, low sodium diet. Continue with home treatment regimen. Hypothyroidism Thyroid labs within normal limits. Continue with home treatment regimen. Hypertension Blood pressure stable. Continue home treatment regimen. History of diabetes mellitus, type II His diabetes mellitus is diet controlled. Accu-checks are mostly below 120. Hemoglobin A1c order for the morning. Continue to monitor blood glucose levels with regular Accu-checks. History of atrial fibrillation Patient in sinus rhythm. Xarelto discontinued, Lovenox initiated. PT elevated at 16.2. INR and D-Dimer unremarkable. History of obesity Patient reports history of obesity, treated with gastric sleeve in 2016 with noted 160 pound weight loss. His current BMI is 28.4. - Time Time Spent with patient: 15-24 minutes Medications reviewed and adjusted accordingly: Yes Anticipated Discharge Disposition: Home, Self Care Anticipated Discharge Timeframe: within 72 hours
[2019-12-15 21:13] LABS: APPEARANCE,URINE CLEAR; BILIRUBIN,URINE NEGATIVE (NEGATIVE); COLOR,URINE YELLOW; GLUCOSE, URINE 50 mg/dL (NEGATIVE); KETONES,URINE NEGATIVE (NEGATIVE); LEUKOCYTE ESTERASE,URINE SMALL (NEGATIVE); NITRITE,URINE NEGATIVE (NEGATIVE); PROTEIN,URINE NEGATIVE (NEGATIVE); URINE SPECIFIC GRAVITY 1.016; UROBILINOGEN,URINE NEGATIVE mg/dL (<2.0)
[2019-12-15] MEDS: ATORVASTATIN CALCIUM 20 MG TABLET PO SCH (21:47)
[2019-12-16] MEDS: HYDROMORPHONE HCL INJ/PF 2 MG/ML AMPULE IV PRN ×3 (02:05→12:27)
[2019-12-16] MEDS: OXYCODONE HCL SR 10 MG TABLET PO SCH ×3 (05:26→18:05)
[2019-12-16] MEDS: VANCOMYCIN HCL 1,250 MG in DEXTROSE 5%-WATER 250 ML IV SCH ×2 (05:26→18:06)
[2019-12-16] MEDS: LEVOTHYROXINE SODIUM 0.088 MG TABLET PO SCH (05:27)
[2019-12-16 06:25] LABS: HEMATOCRIT 38.8 % (37.9-51.0); HEMOGLOBIN 13.6 g/dL (13.5-17.0); MEAN CORPUSCULAR HEMOGLOBIN 32.9 pg (27.0-33.4); MEAN CORPUSCULAR HGB CONC 35.2 g/dL (32.0-36.0); MEAN CORPUSCULAR VOLUME 94 fl (80-97); PLATELET COUNT 222 10^3/uL (150-450); RED BLOOD COUNT 4.14 10^6/uL (4.35-5.55); RED CELL DISTRIBUTION WIDTH 11.9 % (11.5-14.0); WHITE BLOOD COUNT 6.3 10^3/uL (4.0-10.5)
[2019-12-16] MEDS: INSULIN REG, HUMAN 100 UNIT/ML 3 ML VIAL (PYX) SUBCUT SCH (07:47)
[2019-12-16] MEDS: LIOTHYRONINE SODIUM 5 MCG TABLET PO SCH ×2 (08:52→18:02)
[2019-12-16] MEDS: BUMETANIDE 1 MG TABLET PO SCH (08:53)
--- NOTE | 2019-12-16 09:50 | PDOC PROGRESS REPORT ---
Subjective Progress Note for:: 12/16/19 Subjective:: feels ok, min pain Reason For Visit: CELLULITIS,HX CHF Physical Exam Vital Signs: Temp Pulse Resp BP Pulse Ox 97.7 F 61 18 142/84 H 99 12/16/19 07:57 12/16/19 07:57 12/16/19 07:57 12/16/19 07:57 12/16/19 07:57 Intake & Output 12/15/19 12/16/19 12/17/19 06:59 06:59 06:59 Intake Total 1750 2620 300 Output Total 1400 780 Balance 350 1840 300 Weight 101.9 kg 106.4 kg General appearance: PRESENT: no acute distress Head exam: PRESENT: normocephalic Eye exam: PRESENT: EOMI Ear exam: PRESENT: normal external ear exam Mouth exam: PRESENT: moist Neck exam: PRESENT: full ROM Respiratory exam: PRESENT: clear to auscultation felipe Cardiovascular exam: PRESENT: RRR Vascular exam: PRESENT: normal capillary refill Breast: PRESENT: Normal GI/Abdominal exam: PRESENT: soft Rectal exam: PRESENT: deferred Extremities exam: PRESENT: full ROM, other - left foot dressing intack, foot warm + distal pulses Neurological exam: PRESENT: alert Psychiatric exam: PRESENT: appropriate affect Skin exam: PRESENT: dry Results Laboratory Results: 12/16/19 05:00 12/15/19 04:57 12/15/19 12/16/19 20:49 05:00 WBC 6.3 RBC 4.14 L Hgb 13.6 Hct 38.8 MCV 94 MCH 32.9 MCHC 35.2 RDW 11.9 Plt Count 222 Urine Color YELLOW Urine Appearance CLEAR Urine pH 6.0 Ur Specific [place] 1.016 Urine Protein NEGATIVE Urine Glucose (UA) 50 H Urine Ketones NEGATIVE Urine Blood NEGATIVE Urine Nitrite NEGATIVE Ur Leukocyte Esterase SMALL H Urine WBC (Auto) 2 Urine RBC (Auto) 1 Impressions: Foot X-Ray 12/14/19 11:42 IMPRESSION: 1. Postsurgical changes. Lucency in the distal phalanx of the 2nd digit raising the possibility of osteomyelitis. 2. Radiopaque foreign body overlying the ventral aspect of the foot. This appears to represent a small needle. Assessment & Plan - Time Anticipated Discharge Disposition: Home, Self Care Anticipated Discharge Timeframe: within 48 hours - Plan Summary Plan Summary: s/p left 2nd toe amputation wound dry plan on dc dressing in am cont iv abx.
[2019-12-16] MEDS: SACUBITRIL/VALSARTAN 24 MG/26 MG TABLET PO SCH ×2 (10:24→21:13)
[2019-12-16] MEDS: MULTIVITAMIN TABLET PO SCH (10:26)
[2019-12-16] MEDS: CARVEDILOL 6.25 MG TABLET PO SCH ×2 (10:26→21:13)
[2019-12-16] MEDS: CEFEPIME 1 GM/D5W RTU 1 GM/50 ML RTUPB IV SCH ×2 (10:27→21:13)
[2019-12-16] MEDS: AMIODARONE HCL 200 MG TABLET PO SCH (10:27)
[2019-12-16] MEDS: ENOXAPARIN SODIUM INJ 100 MG/1 ML DISP.SYRIN SUBCUT SCH ×2 (10:28→21:15)
--- NOTE | 2019-12-16 14:29 | PDOC PROGRESS REPORT ---
Subjective Progress Note for:: 12/16/19 Subjective:: Patient is resting in bed comfortably with his left leg elevated with two pillows. He reports a minimal pain in the left foot that occasionally throbs. Otherwise denies fever, chills, chest pain, shortness of breath, cough, abdominal pain, nausea, vomiting, diarrhea, or lower extremity swelling. Reason For Visit: CELLULITIS,HX CHF Physical Exam Vital Signs: Temp Pulse Resp BP Pulse Ox 97.7 F 61 18 142/84 H 99 12/16/19 07:57 12/16/19 07:57 12/16/19 07:57 12/16/19 07:57 12/16/19 07:57 Intake & Output 12/15/19 12/16/19 12/17/19 06:59 06:59 06:59 Intake Total 1750 2620 300 Output Total 1400 780 Balance 350 1840 300 Weight 101.9 kg 106.4 kg General appearance: PRESENT: no acute distress, cooperative, well-developed, well-nourished Head exam: PRESENT: atraumatic, normocephalic Eye exam: PRESENT: EOMI, PERRLA Ear exam: PRESENT: TM's normal bilaterally. ABSENT: bleeding, drainage Mouth exam: PRESENT: moist, tongue midline Neck exam: PRESENT: full ROM. ABSENT: tenderness Respiratory exam: PRESENT: clear to auscultation felipe, symmetrical, unlabored. ABSENT: tachypnea Cardiovascular exam: PRESENT: RRR, +S1, +S2. ABSENT: diastolic murmur, gallop, rubs, systolic murmur Pulses: PRESENT: normal radial pulses, normal dorsalis pedis pul - right foot, unable to test left due to dressing GI/Abdominal exam: PRESENT: normal bowel sounds, soft. ABSENT: ascites, guarding, rebound, tenderness Rectal exam: PRESENT: deferred Extremities exam: PRESENT: full ROM, other - Left foot in dressing.. ABSENT: calf tenderness, tenderness Musculoskeletal exam: PRESENT: full ROM Neurological exam: PRESENT: alert, awake, oriented to person, oriented to place, oriented to time, oriented to situation, CN II-XII grossly intact. ABSENT: motor sensory deficit Psychiatric exam: PRESENT: appropriate affect, normal mood Skin exam: PRESENT: dry, normal color, warm. ABSENT: erythema, rash Results Laboratory Results: 12/16/19 05:00 12/15/19 04:57 12/15/19 12/16/19 20:49 05:00 WBC 6.3 RBC 4.14 L Hgb 13.6 Hct 38.8 MCV 94 MCH 32.9 MCHC 35.2 RDW 11.9 Plt Count 222 Urine Color YELLOW Urine Appearance CLEAR Urine pH 6.0 Ur Specific [place] 1.016 Urine Protein NEGATIVE Urine Glucose (UA) 50 H Urine Ketones NEGATIVE Urine Blood NEGATIVE Urine Nitrite NEGATIVE Ur Leukocyte Esterase SMALL H Urine WBC (Auto) 2 Urine RBC (Auto) 1 Impressions: Foot X-Ray 12/14/19 11:42 IMPRESSION: 1. Postsurgical changes. Lucency in the distal phalanx of the 2nd digit raising the possibility of osteomyelitis. 2. Radiopaque foreign body overlying the ventral aspect of the foot. This appears to represent a small needle. Assessment and Plan - Diagnosis (1) Status post amputation of lesser toe of left foot Is this a current diagnosis for this admission?: Yes (2) Cellulitis of second toe, left Is this a current diagnosis for this admission?: Yes (3) Urine leukocytes increased Is this a current diagnosis for this admission?: Yes (4) Congestive heart failure due to cardiomyopathy Is this a current diagnosis for this admission?: Yes (5) Hypothyroidism Qualifiers: Hypothyroidism type: acquired Qualified Code(s): E03.9 - Hypothyroidism, unspecified Is this a current diagnosis for this admission?: Yes (6) Hypertension Qualifiers: Hypertension type: essential hypertension Qualified Code(s): I10 - Essential (primary) hypertension Is this a current diagnosis for this admission?: Yes (7) History of diabetes mellitus, type II Is this a current diagnosis for this admission?: Yes (8) History of atrial fibrillation Is this a current diagnosis for this admission?: Yes (9) History of obesity Is this a current diagnosis for this admission?: Yes - Plan Summary Summary: VITALY HENNESSY is a 64 year old male with past medical history of hypertension, HLD, hypothyroidism, congestive heart failure (AICD), diet controlled diabetes mellitus, chronic pain, staph/MRSA infection (2007), and a 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 Evaluation in the emergency department included x-ray of the left foot notable for postsurgical changes, lucency in the distal phalanx of the second digit raising the possibility of osteomyelitis. He was started on vancomycin and cefepime and received morphine for the pain. Surgery was consulted and patient was ultimately treated with amputation. Status post amputation of lesser toe of left foot Complete left second ray amputation, with DPC sutures 12/15/2019. Surgical dressing is in place. Patient tolerated the procedure well. He is to keep his leg elevated. He is followed by surgery who plans to remove dressing tomorrow. Historically followed by a local wound clinic, we will have him follow-up after discharge. Recommend offloading the left foot with a Darco-offloading boot. Cellulitis of second toe, left Patient with cellulitis of the left second toe, suspicious for osteomyelitis as supported by radiographic and physical exam findings. He is s/p amputation. Continue with cefepime and vancomycin for a total of 7 days. Consider switching to oral abx. C-reactive protein was elevated prior to amputation. We expect this to significantly drop as infected tissue and bone have been removed. Consider repeat. Blood culture 12/14/2019 with no growth. Urine Leukocyte elevated: Small amount of leukocyte esterase in most UA. Urine culture with no growth. There is a low suspicion of infection, though his current antibiotic regimen would treat infection if present. Congestive heart failure due to cardiomyopathy: He is on a cardiac low fat, low sodium diet. Continue with home treatment regimen. Hypothyroidism: Thyroid labs within normal limits. Continue with home treatment regimen. Hypertension: Blood pressure stable. Continue home treatment regimen. History of diabetes mellitus, type II: History of type 2 diabetes which is now diet controlled. His hemoglobin A1c is 5.5. We will stop Accu-Cheks at this time. History of atrial fibrillation: Patient in sinus rhythm. Xarelto discontinued, Lovenox initiated. History of obesity: Patient reports history of obesity, treated with gastric sleeve in 2016 with noted 160 pound weight loss. His current BMI is 28.4. - Time Time Spent with patient: 15-24 minutes Medications reviewed and adjusted accordingly: Yes Anticipated Discharge Disposition: Home, Self Care Anticipated Discharge Timeframe: within 72 hours
[2019-12-16 18:46] LABS: VANCOMYCIN,TROUGH 17.5 ug/mL (5.0-20.0)
[2019-12-16] MEDS ORDERED: HYDROMORPHONE HCL INJ/PF 2 MG/ML AMPULE IV ONE (19:00)
[2019-12-16] MEDS ORDERED: OXYCODONE HCL IR 5 MG TABLET PO ONE (19:00)
[2019-12-16] MEDS: ATORVASTATIN CALCIUM 20 MG TABLET PO SCH (21:13)
[2019-12-16] MEDS: NORMAL SALINE 1000 ML 1,000 ML IV PRN (21:19)
[2019-12-17] MEDS: HYDROMORPHONE HCL INJ/PF 2 MG/ML AMPULE IV PRN ×5 (00:28→22:28)
[2019-12-17] MEDS: OXYCODONE HCL IR 5 MG TABLET PO PRN ×4 (00:29→20:30)
[2019-12-17] MEDS: LEVOTHYROXINE SODIUM 0.088 MG TABLET PO SCH (05:04)
[2019-12-17] MEDS: VANCOMYCIN HCL 1,250 MG in DEXTROSE 5%-WATER 250 ML IV SCH ×2 (05:04→18:03)
[2019-12-17 05:28] LABS: ANION GAP 5 (5-19); BLOOD UREA NITROGEN 24 mg/dL (7-20); CALCIUM 8.7 mg/dL (8.4-10.2); CARBON DIOXIDE 32 mmol/L (22-30); CHLORIDE 102 mmol/L (98-107); GLUCOSE 91 mg/dL (75-110); POTASSIUM 4.2 mmol/L (3.6-5.0)
[2019-12-17] MEDS ORDERED: OXYCODONE HCL SR 10 MG TABLET PO SCH (06:00)
[2019-12-17] MEDS: MULTIVITAMIN TABLET PO SCH (09:12)
[2019-12-17] MEDS: CARVEDILOL 6.25 MG TABLET PO SCH ×2 (09:12→22:28)
[2019-12-17] MEDS: AMIODARONE HCL 200 MG TABLET PO SCH (09:13)
[2019-12-17] MEDS: ENOXAPARIN SODIUM INJ 100 MG/1 ML DISP.SYRIN SUBCUT SCH (09:13)
[2019-12-17] MEDS: LIOTHYRONINE SODIUM 5 MCG TABLET PO SCH ×2 (09:13→18:04)
[2019-12-17] MEDS: CEFEPIME 1 GM/D5W RTU 1 GM/50 ML RTUPB IV SCH ×2 (09:13→22:27)
[2019-12-17] MEDS: BUMETANIDE 1 MG TABLET PO SCH (09:13)
[2019-12-17] MEDS: NORMAL SALINE 1000 ML 1,000 ML IV PRN (09:16)
[2019-12-17] MEDS: SACUBITRIL/VALSARTAN 24 MG/26 MG TABLET PO SCH ×2 (10:49→22:29)
--- NOTE | 2019-12-17 11:35 | PDOC PROGRESS REPORT ---
Subjective Progress Note for:: 12/17/19 Reason For Visit: CELLULITIS,HX CHF Physical Exam Vital Signs: Temp Pulse Resp BP Pulse Ox 98.2 F 60 16 136/93 H 96 12/17/19 07:19 12/17/19 07:19 12/17/19 07:19 12/17/19 07:19 12/17/19 07:19 Intake & Output 12/16/19 12/17/19 12/18/19 06:59 06:59 06:59 Intake Total 3620 900 1050 Output Total 780 200 Balance 2840 700 1050 Weight 106.4 kg 104.6 kg Results Laboratory Results: 12/16/19 05:00 12/17/19 04:46 12/17/19 04:46 Sodium 138.8 Potassium 4.2 Chloride 102 Carbon Dioxide 32 H Anion Gap 5 BUN 24 H Creatinine 0.93 Est GFR ( Amer) > 60 Glucose 91 Calcium 8.7 Impressions: Foot X-Ray 12/14/19 11:42 IMPRESSION: 1. Postsurgical changes. Lucency in the distal phalanx of the 2nd digit raising the possibility of osteomyelitis. 2. Radiopaque foreign body overlying the ventral aspect of the foot. This appears to represent a small needle. Assessment & Plan - Diagnosis (1) Diabetic infection of left foot Is this a current diagnosis for this admission?: Yes - Time Anticipated Discharge Disposition: unknown Anticipated Discharge Timeframe: unknown - Plan Summary Plan Summary: 54-year-old male status post left second toe amputation. There is still erythema on the dorsum of the foot, surrounding the surgical site. There is no purulence within the wound. Packing was removed today and replaced. Initiate damp to dry dressing changes twice daily. Continue with intravenous antibiotics. Surgery will continue to follow.
--- NOTE | 2019-12-17 13:59 | PDOC PROGRESS REPORT ---
Subjective Progress Note for:: 12/17/19 Subjective:: Mr. Thomas is resting in bed. He states that he still has pain in his foot. It is worse when it is in the dependent position. He also experiences discomfort with dressing changes but this is expected in the postoperative state. Reason For Visit: CELLULITIS,HX CHF Physical Exam Vital Signs: Temp Pulse Resp BP Pulse Ox 97.9 F 60 20 116/75 95 12/17/19 11:22 12/17/19 11:22 12/17/19 11:22 12/17/19 11:22 12/17/19 11:22 Intake & Output 12/16/19 12/17/19 12/18/19 06:59 06:59 06:59 Intake Total 3620 900 1050 Output Total 780 200 Balance 2840 700 1050 Weight 106.4 kg 104.6 kg General appearance: PRESENT: cooperative, mild distress, well-developed Head exam: PRESENT: atraumatic, normocephalic Eye exam: PRESENT: conjunctiva pink. ABSENT: scleral icterus Ear exam: PRESENT: normal external ear exam. ABSENT: bleeding, drainage Mouth exam: PRESENT: moist, tongue midline Neck exam: ABSENT: carotid bruit, JVD, lymphadenopathy Respiratory exam: PRESENT: clear to auscultation felipe, symmetrical, unlabored. ABSENT: prolonged expiratory phas, rales, rhonchi, tachypnea, wheezes Cardiovascular exam: PRESENT: RRR, +S1, +S2. ABSENT: bradycardia, diastolic murmur, irregular rhythm, systolic murmur, tachycardia GI/Abdominal exam: PRESENT: normal bowel sounds, soft. ABSENT: distended, guarding, tenderness Rectal exam: PRESENT: deferred Gentrourinary exam: ABSENT: indwelling catheter Extremities exam: PRESENT: full ROM. ABSENT: clubbing, pedal edema Musculoskeletal exam: PRESENT: ambulatory, deformity - Left first and now second toes have been amputated. ABSENT: dislocation Neurological exam: PRESENT: alert, awake, oriented to person, oriented to place, oriented to time, oriented to situation, CN II-XII grossly intact. ABSENT: altered, motor sensory deficit Psychiatric exam: PRESENT: appropriate affect. ABSENT: agitated, anxious Focused psych exam: ABSENT: delusional, paranoid, restlessness Skin exam: PRESENT: dry, normal color, warm, other - Bulky dressing left foot. ABSENT: rash Results Laboratory Results: 12/16/19 05:00 12/17/19 04:46 12/17/19 04:46 Sodium 138.8 Potassium 4.2 Chloride 102 Carbon Dioxide 32 H Anion Gap 5 BUN 24 H Creatinine 0.93 Est GFR ( Amer) > 60 Glucose 91 Calcium 8.7 12/15/19 20:49 Clean Catch Midstream Urine Culture - Final NO GROWTH 2 DAYS Impressions: Foot X-Ray 12/14/19 11:42 IMPRESSION: 1. Postsurgical changes. Lucency in the distal phalanx of the 2nd digit raising the possibility of osteomyelitis. 2. Radiopaque foreign body overlying the ventral aspect of the foot. This appears to represent a small needle. Assessment and Plan - Diagnosis (1) Status post amputation of lesser toe of left foot Is this a current diagnosis for this admission?: Yes (2) Cellulitis of second toe, left Is this a current diagnosis for this admission?: Yes (3) Urine leukocytes increased Is this a current diagnosis for this admission?: Yes (4) Congestive heart failure due to cardiomyopathy Is this a current diagnosis for this admission?: Yes (5) Hypothyroidism Qualifiers: Hypothyroidism type: acquired Qualified Code(s): E03.9 - Hypothyroidism, unspecified Is this a current diagnosis for this admission?: Yes (6) Longstanding persistent atrial fibrillation Is this a current diagnosis for this admission?: Yes (7) Hypertension Qualifiers: Hypertension type: essential hypertension Qualified Code(s): I10 - Essential (primary) hypertension Is this a current diagnosis for this admission?: Yes (8) History of diabetes mellitus, type II Is this a current diagnosis for this admission?: Yes (9) History of obesity Is this a current diagnosis for this admission?: Yes - Plan Summary Summary: VITALY THOMAS is a 64 year old male with past medical history of hypertension, HLD, hypothyroidism, congestive heart failure (AICD), diet controlled diabetes mellitus, chronic pain, staph/MRSA infection (2007), and a 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 Evaluation in the emergency department included x-ray of the left foot notable for postsurgical changes, lucency in the distal phalanx of the second digit raising the possibility of osteomyelitis. He was started on vancomycin and cefepime and received morphine for the pain. Surgery was consulted and patient was ultimately treated with amputation. Status post amputation of lesser toe of left foot Complete left second ray amputation, with DPC sutures 12/15/2019. Surgical dressing is in place. Patient tolerated the procedure well. He is to keep his leg elevated. He is followed by surgery and they have recommended saline wet-to-dry dressings every 12 hours. Historically followed by a local wound clinic, we will have him follow-up after discharge. Recommend offloading the left foot with a Darco-offloading boot. Cellulitis of second toe, left Patient with cellulitis of the left second toe, suspicious for osteomyelitis as supported by radiographic and physical exam findings. He is s/p amputation. Continue with cefepime and vancomycin for a total of 7 days. Consider switching to oral abx if stable and ready for discharge Blood culture 12/14/2019 with no growth. Urine Leukocyte elevated: Small amount of leukocyte esterase in most UA. Urine culture with no growth. There is a low suspicion of infection, though his current antibiotic regimen would treat infection if present. Congestive heart failure due to cardiomyopathy: He is on a cardiac low fat, low sodium diet. Continue with home treatment regimen. Based on records from [facility] we are unable to determine whether or not the heart failure is specifically systolic, diastolic or combined. As he is stable there is no need for an echocardiogram at this time. Longstanding persistent atrial fibrillation Good rate control. Continue current medication regimen which does include amiodarone and carvedilol along with anticoagulation. He will receive his last Lovenox dose tonight and we will restart his Xarelto in the morning. Currently he remains in normal sinus rhythm. Hypothyroidism: Thyroid labs within normal limits. Continue with home treatment regimen. Hypertension: Blood pressure stable. Continue home treatment regimen. History of diabetes mellitus, type II: History of type 2 diabetes which is now diet controlled. His hemoglobin A1c is 5.5. We will stop Accu-Cheks at this time. History of obesity: Patient reports history of obesity, treated with gastric sl eeve in 2016 with noted 160 pound weight loss. His current BMI is 28.4. - Time Time Spent with patient: 15-24 minutes Medications reviewed and adjusted accordingly: Yes Anticipated Discharge Disposition: Home, Self Care Anticipated Discharge Timeframe: within 72 hours
[2019-12-17] MEDS: ATORVASTATIN CALCIUM 20 MG TABLET PO SCH (22:28)
[2019-12-18] MEDS: NORMAL SALINE 1000 ML 1,000 ML IV PRN ×2 (02:29→14:30)
[2019-12-18] MEDS: OXYCODONE HCL IR 5 MG TABLET PO PRN ×4 (02:29→22:00)
[2019-12-18] MEDS: LEVOTHYROXINE SODIUM 0.088 MG TABLET PO SCH (05:14)
[2019-12-18] MEDS: VANCOMYCIN HCL 1,250 MG in DEXTROSE 5%-WATER 250 ML IV SCH ×2 (05:14→17:52)
[2019-12-18] MEDS: HYDROMORPHONE HCL INJ/PF 2 MG/ML AMPULE IV PRN ×3 (06:10→20:53)
[2019-12-18] MEDS: CEFEPIME 1 GM/D5W RTU 1 GM/50 ML RTUPB IV SCH ×2 (09:13→22:03)
[2019-12-18] MEDS: AMIODARONE HCL 200 MG TABLET PO SCH (09:13)
[2019-12-18] MEDS: MULTIVITAMIN TABLET PO SCH (09:13)
[2019-12-18] MEDS: BUMETANIDE 1 MG TABLET PO SCH (09:13)
[2019-12-18] MEDS: LIOTHYRONINE SODIUM 5 MCG TABLET PO SCH ×2 (09:13→17:52)
[2019-12-18] MEDS: RIVAROXABAN 10 MG TABLET PO SCH (09:13)
[2019-12-18] MEDS: CARVEDILOL 6.25 MG TABLET PO SCH ×2 (09:13→21:58)
[2019-12-18] MEDS: SACUBITRIL/VALSARTAN 24 MG/26 MG TABLET PO SCH ×2 (11:41→21:59)
[2019-12-18] MEDS: IBUPROFEN 800 MG TABLET PO SCH ×2 (11:41→17:52)
--- NOTE | 2019-12-18 12:36 | PDOC PROGRESS REPORT ---
Subjective Progress Note for:: 12/18/19 Reason For Visit: CELLULITIS,HX CHF Physical Exam Vital Signs: Temp Pulse Resp BP Pulse Ox 98.3 F 66 19 127/81 H 98 12/18/19 11:11 12/18/19 11:11 12/18/19 11:11 12/18/19 11:11 12/18/19 11:11 Intake & Output 12/17/19 12/18/19 12/19/19 06:59 06:59 06:59 Intake Total 900 2840 50 Output Total 200 1250 Balance 700 1590 50 Weight 104.6 kg 104.6 kg Results Laboratory Results: 12/16/19 05:00 12/17/19 04:46 12/15/19 20:49 Clean Catch Midstream Urine Culture - Final NO GROWTH 2 DAYS Impressions: Foot X-Ray 12/14/19 11:42 IMPRESSION: 1. Postsurgical changes. Lucency in the distal phalanx of the 2nd digit raising the possibility of osteomyelitis. 2. Radiopaque foreign body overlying the ventral aspect of the foot. This appears to represent a small needle. Assessment & Plan - Diagnosis (1) Diabetic infection of left foot Is this a current diagnosis for this admission?: Yes - Time Anticipated Discharge Disposition: Home, Self Care Anticipated Discharge Timeframe: within 48 hours - Plan Summary Plan Summary: 54-year-old male status post left second toe amputation. There is still erythema on the dorsum of the foot, surrounding the surgical site. There is no purulence within the wound. Packing was removed today and replaced. Continue damp to dry dressing changes twice daily. Continue with intravenous antibiotics. Add NSAID's and Gabapentin for pain control. Surgery will continue to follow.
[2019-12-18] MEDS: GABAPENTIN 100 MG CAPSULE PO SCH ×2 (13:47→21:58)
--- NOTE | 2019-12-18 17:32 | PDOC PROGRESS REPORT ---
Subjective Progress Note for:: 12/18/19 Subjective:: Patient is feeling better. He is trying to limit his pain medication. His Darco offloading shoe should be in tomorrow. Physical therapy worked with him and feels that he is independent. Reason For Visit: CELLULITIS,HX CHF Physical Exam Vital Signs: Temp Pulse Resp BP Pulse Ox 98.3 F 62 21 H 152/72 H 96 12/18/19 16:00 12/18/19 16:00 12/18/19 16:00 12/18/19 16:00 12/18/19 16:00 Intake & Output 12/17/19 12/18/19 12/19/19 06:59 06:59 06:59 Intake Total 900 2840 1522 Output Total 200 1250 Balance 700 1590 1522 Weight 104.6 kg 104.6 kg General appearance: PRESENT: no acute distress, cooperative, well-developed Head exam: PRESENT: atraumatic, normocephalic Ear exam: PRESENT: normal external ear exam. ABSENT: bleeding, drainage Neck exam: ABSENT: carotid bruit, JVD, lymphadenopathy Respiratory exam: PRESENT: clear to auscultation felipe, symmetrical, unlabored. ABSENT: prolonged expiratory phas, rales, rhonchi, tachypnea, wheezes Cardiovascular exam: PRESENT: RRR, +S1, +S2. ABSENT: bradycardia, diastolic murmur, irregular rhythm, systolic murmur, tachycardia GI/Abdominal exam: PRESENT: normal bowel sounds, soft. ABSENT: distended, guarding, tenderness Rectal exam: PRESENT: deferred Gentrourinary exam: ABSENT: indwelling catheter Extremities exam: PRESENT: other - Dressing on left foot. ABSENT: pedal edema Musculoskeletal exam: PRESENT: ambulatory, normal inspection - With the exception of the bulky dressing on the left foot. ABSENT: dislocation Neurological exam: PRESENT: alert, awake, oriented to person, oriented to place, oriented to time, oriented to situation. ABSENT: altered Psychiatric exam: PRESENT: appropriate affect. ABSENT: agitated, anxious Focused psych exam: ABSENT: delusional, paranoid, restlessness Skin exam: PRESENT: dry, normal color, warm, other - Did not take down the dressing on the left foot. ABSENT: rash Results Laboratory Results: 12/16/19 05:00 12/17/19 04:46 Impressions: Foot X-Ray 12/14/19 11:42 IMPRESSION: 1. Postsurgical changes. Lucency in the distal phalanx of the 2nd digit raising the possibility of osteomyelitis. 2. Radiopaque foreign body overlying the ventral aspect of the foot. This appears to represent a small needle. Assessment and Plan - Diagnosis (1) Status post amputation of lesser toe of left foot Is this a current diagnosis for this admission?: Yes (2) Cellulitis of second toe, left Is this a current diagnosis for this admission?: Yes (3) Urine leukocytes increased Is this a current diagnosis for this admission?: Yes (4) Congestive heart failure due to cardiomyopathy Is this a current diagnosis for this admission?: Yes (5) Hypothyroidism Qualifiers: Hypothyroidism type: acquired Qualified Code(s): E03.9 - Hypothyroidism, unspecified Is this a current diagnosis for this admission?: Yes (6) Longstanding persistent atrial fibrillation Is this a current diagnosis for this admission?: Yes (7) Hypertension Qualifiers: Hypertension type: essential hypertension Qualified Code(s): I10 - Essential (primary) hypertension Is this a current diagnosis for this admission?: Yes (8) History of diabetes mellitus, type II Is this a current diagnosis for this admission?: Yes (9) History of obesity Is this a current diagnosis for this admission?: Yes - Plan Summary Summary: VITALY HENNESSY is a 64 year old male with past medical history of hypertension, HLD, hypothyroidism, congestive heart failure (AICD), diet controlled diabetes mellitus, chronic pain, staph/MRSA infection (2007), and a 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 Evaluation in the emergency department included x-ray of the left foot notable for postsurgical changes, lucency in the distal phalanx of the second digit raising the possibility of osteomyelitis. He was started on vancomycin and cefepime and received morphine for the pain. Surgery was consulted and patient was ultimately treated with amputation. Status post amputation of lesser toe of left foot Complete left second ray amputation, with DPC sutures 12/15/2019. Surgical dressing is in place. Patient tolerated the procedure well. He is to keep his leg elevated. He is followed by surgery and they have recommended saline wet-to-dry dressings every 12 hours. Historically followed by a local wound clinic, we will have him follow-up after discharge. Recommend offloading the left foot with a Darco-offloading boot should be onsite tomorrow. Physical therapy saw the patient. He does not need ongoing therapy but is independent with his activities. Cellulitis of second toe, left Patient with cellulitis of the left second toe, suspicious for osteomyelitis as supported by radiographic and physical exam findings. He is s/p amputation. Continue with cefepime and vancomycin for a total of 7 days. Consider switching to oral abx if stable and ready for discharge Blood culture 12/14/2019 with no growth. Complete antibiotic therapy as ordered. Urine Leukocyte elevated: Small amount of leukocyte esterase in most UA. Urine culture with no growth. There is a low suspicion of infection, though his current antibiotic regimen would treat infection if present. Urine culture is no growth Congestive heart failure due to cardiomyopathy: He is on a cardiac low fat, low sodium diet. Continue with home treatment regimen. Based on records from [facility] we are unable to determine whether or not the heart failure is specifically systolic, diastolic or combined. As he is stable there is no need for an echocardiogram at this time. Asymptomatic. Continue current regimen Longstanding persistent atrial fibrillation Good rate control. Continue current medication regimen which does include amiodarone and carvedilol along with anticoagulation. He will receive his last Lovenox dose tonight and we will restart his Xarelto in the morning. Currently he remains in normal sinus rhythm. Remains in sinus rhythm. Now back on his Xarelto Hypothyroidism: Thyroid labs within normal limits. Continue with home treatment regimen. Hypertension: Blood pressure stable. Continue home treatment regimen. History of diabetes mellitus, type II: History of type 2 diabetes which is now diet controlled. His hemoglobin A1c is 5.5. We will stop Accu-Cheks at this time. History of obesity: Patient reports history of obesity, treated with gastric sleeve in 2016 with noted 160 pound weight loss. His current BMI is 28.4. - Time Time Spent with patient: Less than 15 minutes Medications reviewed and adjusted accordingly: Yes Anticipated Discharge Disposition: Home, Self Care Anticipated Discharge Timeframe: within 48 hours
[2019-12-18] MEDS: ATORVASTATIN CALCIUM 20 MG TABLET PO SCH (21:58)
[2019-12-19] MEDS: HYDROMORPHONE HCL INJ/PF 2 MG/ML AMPULE IV PRN ×3 (01:06→11:11)
[2019-12-19] MEDS: OXYCODONE HCL IR 5 MG TABLET PO PRN ×3 (02:24→14:52)
[2019-12-19 06:02] LABS: HEMOGLOBIN 14.1 g/dL (13.5-17.0); MEAN CORPUSCULAR HEMOGLOBIN 32.9 pg (27.0-33.4); MEAN CORPUSCULAR HGB CONC 35.2 g/dL (32.0-36.0); MEAN CORPUSCULAR VOLUME 93 fl (80-97); PLATELET COUNT 206 10^3/uL (150-450); RED BLOOD COUNT 4.28 10^6/uL (4.35-5.55); RED CELL DISTRIBUTION WIDTH 11.9 % (11.5-14.0)
[2019-12-19] MEDS: LEVOTHYROXINE SODIUM 0.088 MG TABLET PO SCH (06:09)
[2019-12-19] MEDS: GABAPENTIN 100 MG CAPSULE PO SCH ×2 (06:09→14:52)
[2019-12-19] MEDS: NORMAL SALINE 1000 ML 1,000 ML IV PRN (06:11)
[2019-12-19] MEDS: VANCOMYCIN HCL 1,250 MG in DEXTROSE 5%-WATER 250 ML IV SCH (06:13)
[2019-12-19] MEDS: LIOTHYRONINE SODIUM 5 MCG TABLET PO SCH (08:30)
[2019-12-19] MEDS: IBUPROFEN 800 MG TABLET PO SCH ×2 (08:31→12:00)
[2019-12-19] MEDS: BUMETANIDE 1 MG TABLET PO SCH (08:31)
[2019-12-19] MEDS: AMIODARONE HCL 200 MG TABLET PO SCH (11:09)
[2019-12-19] MEDS: MULTIVITAMIN TABLET PO SCH (11:10)
[2019-12-19] MEDS: CARVEDILOL 6.25 MG TABLET PO SCH (11:10)
[2019-12-19] MEDS: RIVAROXABAN 10 MG TABLET PO SCH (11:10)
[2019-12-19] MEDS: SACUBITRIL/VALSARTAN 24 MG/26 MG TABLET PO SCH (11:10)
[2019-12-19] MEDS: CEFEPIME 1 GM/D5W RTU 1 GM/50 ML RTUPB IV SCH (11:11)
[2019-12-19 13:20] LABS: APPEARANCE,URINE CLEAR; BILIRUBIN,URINE NEGATIVE (NEGATIVE); COLOR,URINE STRAW; GLUCOSE, URINE NEGATIVE (NEGATIVE); KETONES,URINE NEGATIVE (NEGATIVE); LEUKOCYTE ESTERASE,URINE NEGATIVE (NEGATIVE); NITRITE,URINE NEGATIVE (NEGATIVE); PROTEIN,URINE NEGATIVE (NEGATIVE); URINE SPECIFIC GRAVITY 1.008; UROBILINOGEN,URINE NEGATIVE mg/dL (<2.0)
[2019-12-19 13:33] LABS: ADD MANUAL MICROSCOPIC YES; HYALINE CASTS, URINE 0-1 /LPF
--- NOTE | 2019-12-19 14:13 | PDOC PROGRESS REPORT ---
Subjective Progress Note for:: 12/19/19 Reason For Visit: CELLULITIS,HX CHF Patient doing well, sitting in chair, foot dependent position Physical Exam Vital Signs: Temp Pulse Resp BP Pulse Ox 98.4 F 65 21 H 122/86 H 98 12/19/19 12:00 12/19/19 12:00 12/19/19 12:00 12/19/19 12:00 12/19/19 12:00 Intake & Output 12/18/19 12/19/19 12/20/19 06:59 06:59 06:59 Intake Total 2840 3082 596 Output Total 1250 Balance 1590 3082 596 Weight 104.6 kg 104.6 kg General appearance: PRESENT: no acute distress Extremities exam: PRESENT: other - Dressing removed. Dorsum of foot erythema resolved. Wound closed by bringing sutures together at bedside. 85% of the wound closed, with the lateral aspect slightly open. Dressings applied. Results Laboratory Results: 12/19/19 05:25 12/17/19 04:46 12/19/19 12/19/19 05:25 12:50 WBC 6.0 RBC 4.28 L Hgb 14.1 Hct 40.0 MCV 93 MCH 32.9 MCHC 35.2 RDW 11.9 Plt Count 206 Urine Color STRAW Urine Appearance CLEAR Urine pH 5.0 Ur Specific [place] 1.008 Urine Protein NEGATIVE Urine Glucose (UA) NEGATIVE Urine Ketones NEGATIVE Urine Blood NEGATIVE Urine Nitrite NEGATIVE Ur Leukocyte Esterase NEGATIVE 12/14/19 12:15 Blood Blood Culture - Final NO GROWTH IN 5 DAYS Impressions: Foot X-Ray 12/14/19 11:42 IMPRESSION: 1. Postsurgical changes. Lucency in the distal phalanx of the 2nd digit raising the possibility of osteomyelitis. 2. Radiopaque foreign body overlying the ventral aspect of the foot. This appears to represent a small needle. Assessment & Plan - Diagnosis (1) Cellulitis of second toe, left Is this a current diagnosis for this admission?: Yes Plan: Pression: Patient is postoperative day 3 status post a left second toe amputation, with closure at bedside, successful early postoperative result Plan: 1. Patient will be discharged home with a short course of p.o. antibiotics, local wound care-see below 2. Local wound care: Remove dressing, wash with soapy water, apply Xeroform, 4 x 4's and Kerlix. Patient may ambulate with surgical boot, weightbearing on left heel only. 3. Patient to follow-up with [facility] in 1 to 2 weeks 4. I discussed the above with Dr. Hunter; surgery will sign off at this time; reconsult if clinically indicated. - Time Time Spent: 30 to 50 Minutes Critical Time spent with patient: Less than 15 minutes Medications reviewed and adjusted accordingly: Yes Anticipated Discharge Disposition: Home, Self Care Anticipated Discharge Timeframe: within 24 hours
[2019-12-19 15:44] VITALS: BP 127/76
--- NOTE | 2019-12-19 16:05 | PDOC DISCHARGE SUMMARY ---
Impression - Admit/DC Date/PCP Admission Date/Primary Care Provider: 12/14/19 15:32 GABRIELLE CAMARA MD Discharge Date: 12/19/19 - Discharge Diagnosis (1) Status post amputation of lesser toe of left foot Is this a current diagnosis for this admission?: Yes (2) Cellulitis of second toe, left Is this a current diagnosis for this admission?: Yes (3) Urine leukocytes increased Is this a current diagnosis for this admission?: Yes (4) Congestive heart failure due to cardiomyopathy Is this a current diagnosis for this admission?: Yes (5) Hypothyroidism Is this a current diagnosis for this admission?: Yes (6) Hypertension Is this a current diagnosis for this admission?: Yes (7) History of diabetes mellitus, type II Is this a current diagnosis for this admission?: Yes (8) History of atrial fibrillation Is this a current diagnosis for this admission?: Yes (9) History of obesity Is this a current diagnosis for this admission?: Yes - Assessment Summary: VITALY HENNESSY is a 64 year old male with past medical history of hypertension, HLD, hypothyroidism, congestive heart failure (AICD), diet controlled diabetes mellitus, chronic pain, staph/MRSA infection (2007), and a 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 Evaluation in the emergency department included x-ray of the left foot notable for postsurgical changes, lucency in the distal phalanx of the second digit raising the possibility of osteomyelitis. He was started on vancomycin and cefepime IV and received morphine for the pain. Surgery was consulted and patient was ultimately treated with amputation. Status post amputation of lesser toe of left foot Patient is postoperative day 3 status post complete left second ray amputation, 85% wound closure done at bedside by surgery today. See surgery note. Local wound care includes routine dressing changes he is to wash the surgical site with soapy water, apply Xeroform, 4 x 4 gauze and Kerlix. He can ambulate with a surgical boot, weightbearing on left heel only. He is to follow-up at [place] [facility] in 1 to 2 weeks. Cellulitis of second toe, left Patient with cellulitis of the left second toe, suspicious for osteomyelitis as supported by radiographic and physical exam findings. Blood culture 12/14/2019 with no growth. He is s/p amputation. Erythema previously noted on the dorsum of his foot has resolved at this time. Surgery has cleared him for discharge, see surgery note. Discontinue his IV antibiotics today. Provided him with a prescription for Augmentin 875mg to be taken twice daily for 5 days. Urine Leukocyte elevated: Small amount of leukocyte esterase in most UA. Urine culture 12/15/2019 with no growth. There is a low suspicion of infection, though his current antibiotic regimen would treat infection if present. Congestive heart failure due to cardiomyopathy: Based on records from [facility] we are unable to determine whether or not the heart failure is specifically systolic, diastolic or combined. He was asymptomatic for the duration of his hospitalization. He states that he has a follow-up appointment with his machine i engraver at the end of this month. He is to continue with his current treatment regimen and follow-up with machine i engraver as scheduled. Longstanding persistent atrial fibrillation Good rate control. Continue current medication regimen which does include amiodarone and carvedilol along with anticoagulation. He was treated with Lovenox prior to the surgery and following. This was discharged yesterday and he was started on Xarelto in the morning. He was consistently in sinus rhythm throughout entire duration of hospitalization. Continue with current treatment regimen and follow-up with machine i engraver as scheduled. Hypothyroidism: Thyroid labs within normal limits. Continue with home treatment regimen. Hypertension: Blood pressure stable. Continue home treatment regimen. History of diabetes mellitus, type II: History of type 2 diabetes which is now diet controlled. His hemoglobin A1c is 5.5. History of obesity: Patient reports history of obesity, treated with gastric sleeve in 2016 with noted 160 pound weight loss. His current BMI is 28.4. - Additional Information Resuscitation Status: Full Code Discharge Diet: Cardiac, Diabetic Discharge Activity: Activity As Tolerated, Balance Activity w/Rest, Weigh Daily Referrals: ESTHER CASTANO MD [ACTIVE STAFF] - (12/19/19 1212 staff stated patient will have to call and schedule his appt.) SALAZAR GAVIRIA MD [ACTIVE STAFF] - 12/29/19 2:15 pm Prescriptions: Amoxicillin/Potassium Clav [Augmentin 875-125 Tablet] 1 tab PO BID 5 Days #10 tab Home Medications: Alprazolam [Xanax 0.5 mg Tablet] 2 mg PO BIDP PRN 10/07/13 Amiodarone HCl [Cordarone 200 mg Tablet] 200 mg PO DAILY 01/01/17 Bumetanide 1 mg PO QAM 01/01/17 Rivaroxaban [Xarelto] 20 mg PO DAILY 01/01/17 Atorvastatin Calcium [Lipitor 20 mg Tablet] 20 mg PO QHS 12/14/19 Bumetanide [Bumex 1 mg Tablet] 0.5 mg PO QPM 12/14/19 Carvedilol [Coreg 6.25 mg Tablet] 6.25 mg PO Q12 12/14/19 Docusate Sodium [Colace 100 mg Capsule] 100 mg PO BIDP PRN 12/14/19 Fish Oil/Dha/Epa [Fish Oil 1,200 mg Fish Oil] 1,200 mg PO BID 12/14/19 Levothyroxine Sodium [Synthroid 0.088 mg Tablet] 88 mcg PO Q6AM 12/14/19 Liothyronine Sodium [Cytomel] 5 mcg PO QPM 12/14/19 Liothyronine Sodium [Cytomel] 10 mg PO QAM 12/14/19 Multivitamin [Daily Multiple Vitamin] 1 tab PO DAILY 12/14/19 Omeprazole 40 mg PO DAILYP PRN 12/14/19 Oxycodone HCl [Oxycodone HCl ER] 10 mg PO Q6 12/14/19 Amoxicillin/Potassium Clav [Augmentin 875-125 Tablet] 1 tab PO BID 5 Days #10 tab 12/19/19 Sacubitril/Valsartan [Entresto 24 mg/26 mg Tablet] 0.5 tab PO Q12 tablet 12/19/19 History of Present Illiness History of Present Illness: VITALY HENNESSY is a 64 year old male with past medical history of hypertension, HLD, hypothyroidism, congestive heart failure (AICD), diet controlled diabetes mellitus, chronic pain, staph/MRSA infection (2007), and a left hallux amputation secondary to infection (2011) who presents to the emergency dep artment complaining of left second toe pain with associated redness, warmth, swelling, drainage and limitation of function. He reports multiple incidents of minor trauma to the left second toe over the course of the past month one of which resulted in break in the skin distally. He noticed an increase in redness and swelling this morning with rapid progression in severity and pain. Evaluation in the emergency department included x-ray of the left foot notable for postsurgical changes, lucency in the distal phalanx of the second digit raising the possibility of osteomyelitis. Chemistry significant for elevated BUN (39), creatinine (1.33) and glucose (54). He was started on vancomycin and cefepime and received morphine for the pain. He is referred to the hospitalist service for further evaluation and management of the above-stated complaints and findings. Hospital Course Hospital Course: Unremarkable course, see details above. Physical Exam Vital Signs: Temp Pulse Resp BP Pulse Ox 98.4 F 65 21 H 127/76 H 98 12/19/19 15:41 12/19/19 15:41 12/19/19 15:41 12/19/19 15:41 12/19/19 15:41 Intake & Output 12/18/19 12/19/19 12/20/19 06:59 06:59 06:59 Intake Total 2840 3082 596 Output Total 1250 Balance 1590 3082 596 Weight 104.6 kg 104.6 kg General appearance: PRESENT: no acute distress, cooperative, well-developed, well-nourished Head exam: PRESENT: atraumatic, normocephalic Eye exam: PRESENT: EOMI, PERRLA. ABSENT: scleral icterus Ear exam: PRESENT: normal external ear exam. ABSENT: bleeding, drainage Mouth exam: PRESENT: moist, tongue midline Neck exam: PRESENT: full ROM. ABSENT: tenderness Respiratory exam: PRESENT: clear to auscultation fel[place], symmetrical, unlabored. ABSENT: rales, rhonchi, tachypnea, wheezes Cardiovascular exam: PRESENT: RRR, +S1, +S2. ABSENT: clicks, diastolic murmur, gallop, rubs, systolic murmur Pulses: PRESENT: normal dorsalis pedis pul GI/Abdominal exam: PRESENT: normal bowel sounds, soft. ABSENT: distended, firm, guarding, tenderness Rectal exam: PRESENT: deferred Extremities exam: PRESENT: full ROM, tenderness - minimally tender to palpation dorsum of left foot.. ABSENT: calf tenderness, pedal edema Musculoskeletal exam: PRESENT: ambulatory, deformity - Amputation site of left hallux, and left second toe Neurological exam: PRESENT: alert, awake, oriented to person, oriented to place, oriented to time, oriented to situation, CN II-XII grossly intact Psychiatric exam: PRESENT: appropriate affect, other - Mood is appropriate for situation. Skin exam: PRESENT: other - Surgical dressing of the left foot was removed, surgical site was examined. Previously noted erythema on the dorsum of the left foot has resolved. The wound bed appears beefy red. Dressing was replaced this was later removed by surgery who re-dressed wound for discharge. Results Laboratory Results: WBC 6.0 10^3/uL (4.0-10.5) 12/19/19 05:25 RBC 4.28 10^6/uL (4.35-5.55) L 12/19/19 05:25 Hgb 14.1 g/dL (13.5-17.0) 12/19/19 05:25 Hct 40.0 % (37.9-51.0) 12/19/19 05:25 MCV 93 fl (80-97) 12/19/19 05:25 MCH 32.9 pg (27.0-33.4) 12/19/19 05:25 MCHC 35.2 g/dL (32.0-36.0) 12/19/19 05:25 RDW 11.9 % (11.5-14.0) 12/19/19 05:25 Plt Count 206 10^3/uL (150-450) 12/19/19 05:25 Lymph % (Auto) 17.1 % (13-45) 12/14/19 12:15 [place] % (Auto) 6.7 % (3-13) 12/14/19 12:15 Eos % (Auto) 2.2 % (0-6) 12/14/19 12:15 Baso % (Auto) 0.8 % (0-2) 12/14/19 12:15 Absolute Neuts (auto) 7.2 10^3/uL (1.7-8.2) 12/14/19 12:15 Absolute Lymphs (auto) 1.7 10^3/uL (0.5-4.7) 12/14/19 12:15 Absolute Monos (auto) 0.7 10^3/uL (0.1-1.4) 12/14/19 12:15 Absolute Eos (auto) 0.2 10^3/uL (0.0-0.6) 12/14/19 12:15 Absolute Basos (auto) 0.1 10^3/uL (0.0-0.2) 12/14/19 12:15 Seg Neutrophils % 73.2 % (42-78) 12/14/19 12:15 PT 16.2 SEC (11.4-15.4) H 12/15/19 04:57 INR 1.28 12/15/19 04:57 D-Dimer 0.38 ug/mL (0.00-0.50) 12/15/19 04:57 Sodium 138.8 mmol/L (137-145) 12/17/19 04:46 Potassium 4.2 mmol/L (3.6-5.0) 12/17/19 04:46 Chloride 102 mmol/L (98-107) 12/17/19 04:46 Carbon Dioxide 32 mmol/L (22-30) H 12/17/19 04:46 Anion Gap 5 (5-19) 12/17/19 04:46 BUN 24 mg/dL (7-20) H 12/17/19 04:46 Creatinine 0.93 mg/dL (0.52-1.25) 12/17/19 04:46 Est GFR ( Amer) > 60 (>60) 12/17/19 04:46 Est GFR (MDRD) Non-Af > 60 (>60) 12/17/19 04:46 Glucose 91 mg/dL (75-110) 12/17/19 04:46 POC Glucose 83 mg/dL (70-110) 12/16/19 06:09 Hemoglobin A1c % 5.5 % (4.7-6.0) 12/16/19 05:00 Calcium 8.7 mg/dL (8.4-10.2) 12/17/19 04:46 Magnesium 2.2 mg/dL (1.6-2.3) 12/15/19 04:57 Total Bilirubin 0.8 mg/dL (0.2-1.3) 12/14/19 12:15 Direct Bilirubin 0.3 mg/dL (0.0-0.4) 12/14/19 12:15 Neonat Total Bilirubin Not Reportable 12/14/19 12:15 Neonat Direct Bilirubin Not Reportable 12/14/19 12:15 Neonat Indirect Bili Not Reportable 12/14/19 12:15 AST 28 U/L (17-59) 12/14/19 12:15 ALT 19 U/L (<50) 12/14/19 12:15 Alkaline Phosphatase 105 U/L (38-126) 12/14/19 12:15 C-Reactive Protein 13.3 mg/L (<10.0) H 12/15/19 04:57 Total Protein 7.4 g/dL (6.3-8.2) 12/14/19 12:15 Albumin 4.6 g/dL (3.5-5.0) 12/14/19 12:15 Triglycerides 84 mg/dL (<150) 12/15/19 04:57 Cholesterol 100.30 mg/dL (0-200) 12/15/19 04:57 LDL Cholesterol Direct 35 mg/dL (<100) 12/15/19 04:57 VLDL Cholesterol 17.0 mg/dL (10-31) 12/15/19 04:57 HDL Cholesterol 49 mg/dL (>40) 12/15/19 04:57 Lipase 89.2 U/L (23-300) 12/14/19 12:15 TSH 4.39 uIU/mL (0.47-4.68) 12/15/19 04:57 Free T4 1.53 ng/dL (0.78-2.19) 12/15/19 04:57 Free T3 pg/mL 3.82 pg/mL (2.77-5.27) 12/15/19 04:57 Urine Color STRAW 12/19/19 12:50 Urine Appearance CLEAR 12/19/19 12:50 Urine pH 5.0 (5.0-9.0) 12/19/19 12:50 Ur Specific [place] 1.008 12/19/19 12:50 Urine Protein NEGATIVE mg/dL (NEGATIVE) 12/19/19 12:50 Urine Glucose (UA) NEGATIVE mg/dL (NEGATIVE) 12/19/19 12:50 Urine Ketones NEGATIVE mg/dL (NEGATIVE) 12/19/19 12:50 Urine Blood NEGATIVE (NEGATIVE) 12/19/19 12:50 Urine Nitrite NEGATIVE (NEGATIVE) 12/19/19 12:50 Urine Bilirubin NEGATIVE (NEGATIVE) 12/19/19 12:50 Urine Urobilinogen NEGATIVE mg/dL (<2.0) 12/19/19 12:50 Ur Leukocyte Esterase NEGATIVE (NEGATIVE) 12/19/19 12:50 Urine WBC (Auto) 2 /HPF 12/15/19 20:49 Urine RBC (Auto) 1 /HPF 12/15/19 20:49 U Hyaline Cast (Auto) 23 /LPF 12/14/19 12:05 Urine Bacteria (Auto) TRACE /HPF 12/14/19 12:05 Squamous Epi Cells Auto <1 /HPF 12/15/19 20:49 Hyaline Casts 0-1 /LPF 12/19/19 12:50 Urine Mucus TRACE 12/19/19 12:50 Urine Mucus (Auto) RARE /LPF 12/15/19 20:49 Urine Ascorbic Acid NEGATIVE (NEGATIVE) 12/19/19 12:50 Time Trough Drawn 1734 12/16/19 17:34 Vancomycin Trough 17.5 ug/mL (5.0-20.0) 12/16/19 17:34 SARS-CoV-2 (PCR) NEGATIVE (NEGATIVE) 12/15/19 09:45 Impressions: Foot X-Ray 12/14/19 11:42 IMPRESSION: 1. Postsurgical changes. Lucency in the distal phalanx of the 2nd digit raising the possibility of osteomyelitis. 2. Radiopaque foreign body overlying the ventral aspect of the foot. This appears to represent a small needle. Plan Health Concerns: Risk of future/further amputation. Plan of Treatment: Continue with wound dressings as instructed. Follow-up with [place] [facility] in 1 to 2 weeks. Goals: Continue to manage diabetes with diet. Time Spent: Greater than 30 Minutes Stroke Is this a Stroke Patient?: No Acute Heart Failure Is this a Heart Failure Patient?: No
== END 2019-12-19 16:35 | disposition home or self-care (01) | DRG 617 ==
LOC: ER 11:12 → EH 15:32 → 4N 17:09
PROVIDERS: ADMIT Hospitalist; ATTEND Hospitalist
PROC: 0Y6S0Z0 Detachment at Left 2nd Toe, Complete, Open Approach (ICD-10-PCS; principal; 2019-12-15 12:45)
DX: E11.69 Type 2 diabetes mellitus with other specified complication (principal); M86.9 Osteomyelitis, unspecified; I42.9 Cardiomyopathy, unspecified; I48.11 Longstanding persistent atrial fibrillation; I11.0 Hypertensive heart disease with heart failure; I50.9 Heart failure, unspecified; E03.9 Hypothyroidism, unspecified; E11.9 Type 2 diabetes mellitus without complications; E78.5 Hyperlipidemia, unspecified; G89.29 Other chronic pain; E66.01 Morbid (severe) obesity due to excess calories; M19.90 Unspecified osteoarthritis, unspecified site; F32.9 Major depressive disorder, single episode, unspecified; R82.998 Other abnormal findings in urine; Z79.84 Long term (current) use of oral hypoglycemic drugs; Z89.422 Acquired absence of other left toe(s); Z95.810 Presence of automatic (implantable) cardiac defibrillator; Z86.14 Personal history of Methicillin resistant Staphylococcus aureus infection; Z68.28 Body mass index [BMI] 28.0-28.9, adult; Z79.899 Other long term (current) drug therapy; Z79.01 Long term (current) use of anticoagulants; Z98.84 Bariatric surgery status; Z83.3 Family history of diabetes mellitus; Z89.412 Acquired absence of left great toe; Z87.891 Personal history of nicotine dependence
CPT/HCPCS: 01480; 36415; 80048; 80053; 80061; 80202; 81001; 82962; 83036; 83690; 83735; 84439; 84443; 84481; 85025; 85027; 85379; 85610; 86140; 87040; 87086; 87635; 88305; 88311; 93005; 93010; 96365; 96375; 99285; C9803; J0692; J1170; J1650; J2250; J2270; J2405; J2704; J3010; J3370; J3490; J7030; J7060

== ENCOUNTER → 2020-03-20 | Outpatient (CLI) | payer MEDICARE, MEDICAID ==
[2020-03-20 15:27] LABS: ABSOLUTE BASOPHILS # (AUTO) 0.1 10^3/uL (0.0-0.2); ABSOLUTE EOSINOPHILS # (AUTO) 0.3 10^3/uL (0.0-0.6); ABSOLUTE LYMPHOCYTES (AUTO) 1.5 10^3/uL (0.5-4.7); ABSOLUTE MONOCYTES (AUTO) 0.4 10^3/uL (0.1-1.4); ABSOLUTE NEUT (AUTO) 4.4 10^3/uL (1.7-8.2); BASOPHILS % (AUTO) 1.1 % (0-2); EOSINOPHILS % (AUTO) 4.3 % (0-6); HEMATOCRIT 44.3 % (37.9-51.0); HEMOGLOBIN 15.1 g/dL (13.5-17.0); LYMPHOCYTES % (AUTO) 21.9 % (13-45); MEAN CORPUSCULAR HEMOGLOBIN 32.3 pg (27.0-33.4); MEAN CORPUSCULAR HGB CONC 34.1 g/dL (32.0-36.0); MEAN CORPUSCULAR VOLUME 95 fl (80-97); MONOCYTES % (AUTO) 6.7 % (3-13); PLATELET COUNT 244 10^3/uL (150-450); RED BLOOD COUNT 4.68 10^6/uL (4.35-5.55); RED CELL DISTRIBUTION WIDTH 12.4 % (11.5-14.0); TOTAL CELLS COUNTED % (AUTO) 100 %; WHITE BLOOD COUNT 6.7 10^3/uL (4.0-10.5)
--- NOTE | 2020-03-20 15:46 | RADIOLOGY REPORT (SQ) ---
EXAM DESCRIPTION: FOOT LEFT COMPLETE IMAGES COMPLETED DATE/TIME: 03/20/2020 3:13 pm REASON FOR STUDY: (L97.522)NON-PRS CHRONIC ULCER OTH PRT LEFT FOOT W FAT LAYER EXPOSED 7.522 NON- PRS CHRONIC ULCER OTH PRT LEFT FOOT W FAT LAYER COMPARISON: 12/14/2019. NUMBER OF VIEWS: Three views. TECHNIQUE: AP, lateral and oblique without weight bearing radiographic images acquired of the left f oot. LIMITATIONS: None. FINDINGS: MINERALIZATION: Normal. BONES: No acute fracture or dislocation. Interval amputation of the 2nd digit. Previous amputation of the 1st digit. No worrisome bone lesions. No significant osteophytes. JOINTS: No erosions. No luigi-articular osteopenia. No chondrocalcinosis. SOFT TISSUES: No swelling. No calcifications. Again seen is a linear metallic foreign object in the plantar soft tissues at the base of the 1st metatarsal. OTHER: No other significant finding. IMPRESSION: INTERVAL REMOVAL OF THE 2ND DIGIT. PREVIOUS AMPUTATION OF THE 1ST DIGIT. NO SIGNIFICAN T BONY FINDINGS. AGAIN SEEN IS A LINEAR METALLIC FOREIGN OBJECT IN THE PLANTAR SOFT TISSUES. TECHNICAL DOCUMENTATION: JOB ID: [id number] 2010 [employer]- All Rights Reserved Reading location - IP/workstation name: [email or web address]
[2020-03-20 15:52] LABS: ALBUMIN 4.2 g/dL (3.5-5.0); ALKALINE PHOSPHATASE 101 U/L (38-126); ANION GAP 7 (5-19); ASPARTATE AMINO TRANSFERASE 35 U/L (17-59); BILIRUBIN,DIRECT 0.2 mg/dL (0.0-0.4); BILIRUBIN,TOTAL 0.4 mg/dL (0.2-1.3); BLOOD UREA NITROGEN 40 mg/dL (7-20); CARBON DIOXIDE 30 mmol/L (22-30); CHLORIDE 103 mmol/L (98-107); GLUCOSE 114 mg/dL (75-110); POTASSIUM 4.9 mmol/L (3.6-5.0); TOTAL PROTEIN 7.3 g/dL (6.3-8.2)
[2020-03-20 15:55] LABS: C-REACTIVE PROTEIN < 5.0 mg/L (<10.0)
[2020-03-20 16:04] LABS: ERYTHROCYTE SEDIMENTATION RATE 18 mm/hr (0-20)
--- NOTE | 2020-03-20 16:12 | RADIOLOGY REPORT (SQ) ---
EXAM DESCRIPTION: ARTERIAL LOWER EXTREM BILAT; PHYSIO ARTERIAL LTD IMAGES COMPLETED DATE/TIME: 03/20/2020 3:49 pm REASON FOR STUDY: LT FOOT ULCER L97.522 NON-PRS CHRONIC ULCER OTH PRT LEFT FOOT W FAT LAYER E11.62 1 TYPE 2 DIABETES MELLITUS WITH FOOT ULCER COMPARISON: 08/25/2017. TECHNIQUE: Dynamic and static kiser scale and color images acquired of the lower extremity arteries. Additional selected spectral images recorded. ABIs recorded. LIMITATIONS: None. FINDINGS: RIGHT LEG: ABIS: Normal, over 1.0. INFLOW ARTERIES: Normal, no obstruction evident. FEMORAL ARTERIES:Triphasic waveforms. Normal, no velocity elevation to suggest focal stenosis. Normal color Doppler evaluation. No aneurysm. POPLITEAL ARTERY:Triphasic waveforms. Normal, no velocity elevation to suggest focal stenosis. Normal color Doppler evaluation. No aneurysm. PATENT TIBIOPERONEAL TRUNK AND 3 VESSEL RUNOFF: Yes, normal vessels. TBI: Not performed. OTHER: No other significant finding. LEFT LEG: ABIS: Normal, over 1.0. INFLOW ARTERIES: Normal, no obstruction evident. FEMORAL ARTERIES:Triphasic waveforms. Normal, no velocity elevation to suggest focal stenosis. Normal color Doppler evaluation. No aneurysm. POPLITEAL ARTERY:Triphasic waveforms. Normal, no velocity elevation to suggest focal stenosis. Normal color Doppler evaluation. No aneurysm. PATENT TIBIOPERONEAL TRUNK AND 3 VESSEL RUNOFF: Yes, normal vessels. TBI: Not performed. OTHER: No other significant finding. IMPRESSION: NORMAL BILATERAL LOWER EXTREMITY ARTERIAL DOPPLER WITH ABIs. COMMENT: [facility] NORMAL: Greater than 1.0 MINIMAL DISEASE: 0.9 to 1.0 CLAUDICATION: 0.5 to 0.9 SEVERE ARTERIAL DISEASE: Less than 0.5 [facility] NORMAL: Greater than 1.0 (1.2 If Heavy Calcifications) NORMAL TO MILD ISCHEMIA: 0.8 to 1.0 MODERATE ISCHEMIA: 0.4 to 0.8 SEVERE ISCHEMIA: Less than 0.4 TECHNICAL DOCUMENTATION: JOB ID: [id number] [employer]- All Rights Reserved Reading location - IP/workstation name: [email or web address]
--- NOTE | 2020-03-20 16:12 | RADIOLOGY REPORT (SQ) ---
EXAM DESCRIPTION: ARTERIAL LOWER EXTREM BILAT; PHYSIO ARTERIAL LTD IMAGES COMPLETED DATE/TIME: 03/20/2020 3:49 pm REASON FOR STUDY: LT FOOT ULCER L97.522 NON-PRS CHRONIC ULCER OTH PRT LEFT FOOT W FAT LAYER E11.62 1 TYPE 2 DIABETES MELLITUS WITH FOOT ULCER COMPARISON: 08/25/2017. TECHNIQUE: Dynamic and static kiser scale and color images acquired of the lower extremity arteries. Additional selected spectral images recorded. ABIs recorded. LIMITATIONS: None. FINDINGS: RIGHT LEG: ABIS: Normal, over 1.0. INFLOW ARTERIES: Normal, no obstruction evident. FEMORAL ARTERIES:Triphasic waveforms. Normal, no velocity elevation to suggest focal stenosis. Normal color Doppler evaluation. No aneurysm. POPLITEAL ARTERY:Triphasic waveforms. Normal, no velocity elevation to suggest focal stenosis. Normal color Doppler evaluation. No aneurysm. PATENT TIBIOPERONEAL TRUNK AND 3 VESSEL RUNOFF: Yes, normal vessels. TBI: Not performed. OTHER: No other significant finding. LEFT LEG: ABIS: Normal, over 1.0. INFLOW ARTERIES: Normal, no obstruction evident. FEMORAL ARTERIES:Triphasic waveforms. Normal, no velocity elevation to suggest focal stenosis. Normal color Doppler evaluation. No aneurysm. POPLITEAL ARTERY:Triphasic waveforms. Normal, no velocity elevation to suggest focal stenosis. Normal color Doppler evaluation. No aneurysm. PATENT TIBIOPERONEAL TRUNK AND 3 VESSEL RUNOFF: Yes, normal vessels. TBI: Not performed. OTHER: No other significant finding. IMPRESSION: NORMAL BILATERAL LOWER EXTREMITY ARTERIAL DOPPLER WITH ABIs. COMMENT: [facility] NORMAL: Greater than 1.0 MINIMAL DISEASE: 0.9 to 1.0 CLAUDICATION: 0.5 to 0.9 SEVERE ARTERIAL DISEASE: Less than 0.5 [facility] NORMAL: Greater than 1.0 (1.2 If Heavy Calcifications) NORMAL TO MILD ISCHEMIA: 0.8 to 1.0 MODERATE ISCHEMIA: 0.4 to 0.8 SEVERE ISCHEMIA: Less than 0.4 TECHNICAL DOCUMENTATION: JOB ID: [id number] [employer]- All Rights Reserved Reading location - IP/workstation name: [email or web address]
== END ==
LOC: SP 14:06
PROVIDERS: ATTEND Preventive Medicine Undersea and Hyperbaric Medicine
DX: E11.621 Type 2 diabetes mellitus with foot ulcer (principal); L97.522 Non-pressure chronic ulcer of other part of left foot with fat layer exposed
CPT/HCPCS: 36415; 80053; 83036; 85025; 85652; 86140; 93922; 93925